=== PATIENT | male | born 1930 | race Caucasian/White ===

== ENCOUNTER 2017-02-11 18:29 | Emergency (ER) | payer MEDICARE, OTHER ==
[2017-02-11 18:38] VITALS: BP 149/72; PULSE 84; RESP 18; TEMP 97.5
--- NOTE | 2017-02-11 19:01 | ED ---
Trauma HPI - General Chief Complaint: Extremity Injury, Upper Stated Complaint: Fall-shoulder pain Source: patient Mode of arrival: ambulatory Limitations: no limitations - History of Present Illness Initial Comments: Patient is a 87-year-old male who presents for evaluation after a slip and fall outside of his home. Past medical history as below. Patient was walking towards his garage and slipped on the snow falling to the right front of his right shoulder. Patient states that he has significant pain to his right shoulder. Limited range of motion. He is able to get up with assistance and ambulate without difficulty. He states he did not hit his head. There is no loss of consciousness. No signs of head trauma. Mentation is at baseline per the at bedside. He is right-handed. He took 2 Aleve after the injury and came here for further evaluation. Denies fever, chills, headache, changes of vision, URI symptoms, shortness of breath, cough, chest pain, nausea, vomiting, diarrhea, pain or burning with urination. - Related Data Home Medications Medication Instructions Recorded Confirmed Aspirin 81 mg PO DAILY 05/24/16 02/11/17 Esomeprazole Magnesium 40 mg PO DAILY 05/24/16 02/11/17 Guaifenesin/Pseudoephedrne HCl 1 tab PO Q48H 05/24/16 02/11/17 [Mucinex D ER Tablet] Levothyroxine Sodium [Synthroid] 125 mcg PO DAILY 05/24/16 02/11/17 Tamsulosin [Flomax] 0.4 mg PO HS 05/24/16 02/11/17 Tiotropium [place] [Spiriva] 1 cap INHALATION RT-DAILY 05/24/16 02/11/17 Biotin 5 mg PO DAILY 09/09/16 02/11/17 Cyanocobalamin [Vitamin B-12] 1,000 mcg PO DAILY 09/09/16 02/11/17 Previous Rx's Medication Instructions Recorded Docusate [Colace] 100 mg PO DAILY PRN #15 capsule 02/11/17 HYDROcodone/APAP 5-325MG [[place] 1 tab PO Q6HR PRN #15 tab 02/11/17 5-325] Allergies Allergy/AdvReac Type Severity Reaction Status Date / Time No Known Allergies Allergy Verified 02/11/17 19:13 Review of Systems ROS Statement: Those systems with pertinent positive or pertinent negative responses have been documented in the HPI. ROS Other: All systems not noted in ROS Statement are negative. Past Medical History Past Medical History: COPD Additional Past Medical History / Comment(s): Bladder tumor and polyps. History of Any Multi-Drug Resistant Organisms: None Reported Past Surgical History: Appendectomy, Joint Replacement Additional Past Surgical History / Comment(s): left knee replaced; Polyps and tumor removed from bladder 09/02/16 Past Anesthesia/Blood Transfusion Reactions: No Reported Reaction Past Psychological History: No Psychological Hx Reported Smoking Status: Former smoker Past Alcohol Use History: None Reported Past Drug Use History: None Reported - Past Family History Father History Unknown: Yes Family Medical History: Cancer Mother History Unknown: Yes Family Medical History: Coronary Artery Disease (CAD) General Exam Limitations: no limitations General appearance: alert, in no apparent distress, other (Sitting upright in chair in no acute distress) Head exam: Present: atraumatic, normocephalic, normal inspection, other (No signs of head trauma.) Eye exam: Present: normal appearance, PERRL, EOMI. Absent: scleral icterus, conjunctival injection, periorbital swelling ENT exam: Present: normal exam, mucous membranes moist Neck exam: Present: normal inspection, other (No pain with palpation of his midline cervical spine. Full range of motion of his neck.). Absent: tenderness , meningismus, lymphadenopathy Respiratory exam: Present: normal lung sounds bilaterally, other (Clear bilaterally without wheezes rales or rhonchi. No diminished breath sounds on the right. No hypoxia. No tachypnea.). Absent: respiratory distress, wheezes , rales, rhonchi, stridor Cardiovascular Exam: Present: regular rate, normal rhythm, normal heart sounds. Absent: systolic murmur, diastolic murmur, rubs, gallop, clicks GI/Abdominal exam: Present: soft, normal bowel sounds, other (Abdomen is soft and nontender.). Absent: distended, tenderness, guarding, rebound, rigid Extremities exam: Present: normal inspection, normal capillary refill, other ( Pain with palpation of the anterior shoulder. There is also pain with palpation of the proximal humerus. Limited range of motion in flexion extension and abduction of the right shoulder. Sensation intact in the right hands. Neurovascularly intact in the right hand. Good cap refill.). Absent: tenderness, pedal edema, joint swelling, calf tenderness Back exam: Present: normal inspection Neurological exam: Present: alert, oriented X3, CN II-XII intact, normal gait, other (Cranial nerves II through XII grossly intact without focal neurological deficits. Mentation appropriate. Alert and oriented 3. Gait intact.) Psychiatric exam: Present: normal affect, normal mood Skin exam: Present: warm, dry, intact, normal color. Absent: rash Course Vital Signs 02/11/17 18:34 Temperature 97.5 F L Pulse Rate 84 Respiratory 18 Rate Blood Pressure 149/72 O2 Sat by Pulse 97 Oximetry Medical Decision Making - Medical Decision Making 1899: Patient presents for evaluation for fall. A mandatory after the fall. No loss of consciousness. No signs of head trauma. Due to his pain to the right shoulder. Limited range of motion. Suspect proximal humerus fracture versus shoulder dislocation. Neurovascularly intact. We'll order plain films of the chest, right shoulder, right elbow. Will also order 2.5 mg IM morphine 2030: Reviewed plain films. No acute fracture dislocation. There are 2 areas of concern that the radiologist could not rule out as a fracture. Radiologist mentions an irregularity with the radial head and irregularity with the scapula. No pain with palpation of the radial head. Full supination and pronation of the right forearm. Full extension and flexion of the right elbow. No pain with palpation of the right scapula. Patient's pain is located to the right anterior shoulder and in the anterior aspect of his right humerus. No identified acute fracture or dislocation. Will place in an arm sling for comfort. [place] for home. Will also provide a stool softener. Patient's orthopedic surgeon is Dr. Loredo. I discussed the case with him over the phone and is OK with the plan. Encouraged to call his office tomorrow morning for follow-up in 1-2 days. Discussed signs and symptoms on when to return to emergency department for further evaluation. Comfortable with discharge home and will follow-up. Disposition Clinical Impression: Fall, Right anterior shoulder pain Disposition: HOME SELF-CARE Condition: Fair Instructions: Shoulder Sprain (ED) Prescriptions: Docusate [Colace] 100 mg PO DAILY PRN #15 capsule PRN Reason: Constipation HYDROcodone/APAP 5-325MG [[place] 5-325] 1 tab PO Q6HR PRN #15 tab PRN Reason: Pain Referrals: Nonstaff,Physician [Primary Care Provider] - 1-2 days Fredrick Loredo DO [Doctor of Osteopathic Medicine] - 1-2 days
[2017-02-11] MEDS ORDERED: MORPHINE SULFATE 10 MG/ML SYRINGE IM STA (19:23)
--- NOTE | 2017-02-11 20:14 | XR ---
EXAMINATION TYPE: XR shoulder complete RT DATE OF EXAM: 02/11/2017 7:57 PM CLINICAL HISTORY: pain COMPARISON: NONE TECHNIQUE: Frontal and lateral images of the right humerus are obtained. FINDINGS: There is no acute fracture/dislocation evident of the shoulder.. The joint spaces appear w ithin normal limits. Cortical irregularity involving the scapular body may reflect remote fracture ho wever clinical correlation point tenderness is recommended to exclude acute fracture. The overlying s oft tissue appears unremarkable. IMPRESSION: Cortical irregularity involving the scapular body may reflect remote fracture however cl inical correlation point tenderness is recommended to exclude acute fracture.
--- NOTE | 2017-02-11 20:15 | XR ---
EXAMINATION TYPE: XR chest 1V DATE OF EXAM: 02/11/2017 7:57 PM HISTORY: Shortness of breath. COMPARISON: 05/24/2016 TECHNIQUE: Single view of the chest is submitted. FINDINGS: Demonstrated are scattered senescent parenchymal change. There is no evidence for focal infiltrate. The heart is stable. Hilar and mediastinal structures are within normal limits. Degenerative changes are seen of the dorsal spine. IMPRESSION: 1. Chronic changes without evidence for acute pulmonary disease.
--- NOTE | 2017-02-11 20:17 | XR ---
EXAMINATION TYPE: XR elbow complete RT DATE OF EXAM: 02/11/2017 7:57 PM CLINICAL HISTORY: pain TECHNIQUE: Frontal, lateral and oblique images of the right elbow are obtained. COMPARISON: None. FINDINGS: Limited study given difficulty in patient positioning. Cortical irregularity radial head is suspicious for fracture. No pathologic fat pad however the lateral view is quite limiting. IMPRESSION: Radial head fracture is not excluded.
== END 2017-02-11 21:02 | disposition home or self-care (01) ==
LOC: EC 18:29
DX: S43.401A Unspecified sprain of right shoulder joint, initial encounter (principal); M89.8X3 Other specified disorders of bone, forearm; J44.9 Chronic obstructive pulmonary disease, unspecified; Z87.891 Personal history of nicotine dependence; Z79.82 Long term (current) use of aspirin; Z79.899 Other long term (current) drug therapy; W00.0XXA Fall on same level due to ice and snow, initial encounter; Y93.01 Activity, walking, marching and hiking; Y92.59 Other trade areas as the place of occurrence of the external cause
CPT/HCPCS: 99283 ×2; 96372 ×2; 71010; 73030; 73080; J2270

== ENCOUNTER 2017-03-07 05:46 | Day surgery (SDC) | payer MEDICARE ==
[2017-03-05 09:47] VITALS: BMI 29.0
[~2017-03-07 05:46] MED LIST: DEXAMETHASONE SOD PHOSPHATE 10 MG/ML 1 ML VIAL IV ONE; HYDROmorphone 1 MG/ML 1 ML SYRINGE IVP PRN; LIDOCAINE 1% 20 ML VIAL (10MG/ML) FOR IV START INTRADERMA PRN; MIDAZOLAM 2 MG/2 ML VIAL IV PRN; ONDANSETRON 4 MG/2 ML VIAL IVP ONE; SCOPOLAMINE 1.5MG/72HR PATCH TRANSDERM ONE; ceFAZolin 2 GM in SODIUM CHLORIDE 0.9% 100 ML IVPB ONE
[2017-03-07] MEDS: LACTATED RINGERS 1,000 ML IV SCH ×3 (06:24→21:26)
[2017-03-07] MEDS ORDERED: LIDOCAINE 1% INJ 10MG/ML (20 ML MDV) ONE (07:36)
[2017-03-07] MEDS ORDERED: GLYCOPYRROLATE 0.2 MG/ML 2 ML VIAL ONE (07:36)
[2017-03-07] MEDS ORDERED: ROCURONIUM BROMIDE 10 MG/ML 10 ML VIAL IV ONE (07:36)
[2017-03-07] MEDS ORDERED: SUCCINYLCHOLINE CHLORIDE 100 MG/5 ML SYR IV ONE (07:36)
[2017-03-07] MEDS ORDERED: PROPOFOL 10 MG/ML 20 ML VIAL IV ONE (07:36)
[2017-03-07] MEDS ORDERED: NEOSTIGMINE 1 MG/ML 10 ML VIAL ONE (07:36)
[2017-03-07] MEDS ORDERED: PHENYLEPHRINE-0.9% NACL SYG 1 MG/10 ML SYRINGE ONE (07:36)
[2017-03-07] MEDS ORDERED: ceFAZolin 1,000 MG in SODIUM CHLORIDE 0.9% 1,000 ML IRRIGATION ONE (08:05)
[2017-03-07] MEDS ORDERED: LACTATED RINGERS 1,000 ML IV ONE (08:40)
[2017-03-07] MEDS ORDERED: HYDROcodone/APAP 5-325MG 1 EACH TAB PO PRN (09:18)
[2017-03-07] MEDS ORDERED: ONDANSETRON 4 MG/2 ML VIAL IVP PRN (09:18)
[2017-03-07] MEDS ORDERED: hydrOXYzine PAMOATE 25 MG CAP PO PRN (09:18)
[2017-03-07] MEDS ORDERED: HYDROmorphone 1 MG/ML 1 ML SYRINGE IVP PRN ×3 (09:18)
[2017-03-07] MEDS: ceFAZolin 2 GM in SODIUM CHLORIDE 0.9% 100 ML IVPB SCH (15:02)
[2017-03-07] MEDS ORDERED: ALBUTEROL NEBULIZED 2.5 MG/3 ML INHALATION PRN (16:29)
[2017-03-07] MEDS ORDERED: DOCUSATE 100 MG CAP PO PRN (16:29)
--- NOTE | 2017-03-07 19:03 | CONS ---
DATE OF CONSULTATION: 03/07/2017 REASON FOR CONSULTATION: Advice regarding COPD and GERD and multiple other medical problems, requested by Dr. Loredo. HISTORY OF PRESENT ILLNESS: This 87-year-old gentleman with a past medical history of COPD, GERD, history of hearing disorder, history of appendectomy, hernia repair, history of nicotine dependence, being followed by Albertina Evans in the outpatient setting, was admitted after right shoulder arthroplasty. There is no history of any fever, rigor, or chills. No history of any headache, loss of consciousness, chest pain, palpitations, shortness of breath, hematochezia, melena. PAST MEDICAL HISTORY: 1. COPD. 2. GERD. 3. Hearing difficulties. 4. Hypothyroidism. 5. Bladder tumor. 6. Appendectomy. 7. Hernia repair. Medications prior to admission include: 1. Spiriva 1 puff daily. 2. Flomax 0.4 at bedtime. 3. Omeprazole 20 mg daily. 4. Synthroid 112 mcg p.o. daily. 5. Colace 100 mg p.o. daily p.r.n. 6. Vitamin B12 1000 mg p.o. daily. 7. Biotin 5 mg p.o. daily. 8. Aspirin 81 mg daily. 9. ProAir 1 to 2 puffs q.6 p.r.n. 10. Senokot-S two tablets p.o. daily. 11. [place] 5 mg 1 to 2 tablets q.4 to 6 p.r.n. ALLERGIES: NONE. FAMILY HISTORY: History of bone cancer in the family. SOCIAL HISTORY: Previous history of smoking. Occasional alcohol intake. REVIEW OF SYSTEMS: ENT: No diminishing hearing. No diminished hearing. CARDIOVASCULAR SYSTEM: No angina, palpitations. RESPIRATORY SYSTEM: As mentioned earlier. GI: No history of nausea, vomiting. : No dysuria. NERVOUS SYSTEM: No numbness or weakness. ALLERGY/IMMUNOLOGY: No asthma or hayfever. MUSCULOSKELETAL: As mentioned earlier. HEMATOLOGY/ONCOLOGY: No history of anemia. ENDOCRINE: As mentioned earlier. ( ) CONSTITUTIONAL: As mentioned earlier. DERMATOLOGY: Negative. RHEUMATOLOGY: Negative. PSYCHIATRY: As mentioned earlier. PHYSICAL EXAMINATION: Patient is alert and oriented x3. Pulse 83, blood pressure 137/76, respiration 20, temperature normal, pulse ox 96% on room air. HEENT: Conjunctivae normal. NECK: No jugular venous distention. CARDIOVASCULAR SYSTEM: S1, S2 muffled. RESPIRATORY SYSTEM: Breath sounds diminished at the bases. Scattered rhonchi and crackles. ABDOMEN: Soft. Non-tender. No mass palpable. LEGS: No edema. No swelling. NERVOUS SYSTEM: Higher functions as mentioned earlier. Moves all 4 limbs. No focal motor or sensory deficit. LYMPHATICS: No lymph node palpable in neck, axillae or groin. SKIN: No ulcer, rash, bleeding. EXAMINATION OF SHOULDER: Status post surgery. PREVIOUS LABS: CBC within normal limits. CMP showed sodium is 133. Triglyceride 288. TSH 0.178. Free T4 is 1.53. ASSESSMENT: 1. Status post right shoulder arthroplasty. 2. Hyponatremia previously. 3. Hypothyroidism. 4. History of chronic obstructive pulmonary disease. 5. Gastroesophageal reflux. 6. History of bladder tumor and polyps. 7. History of hernia ( ). 8. History of degenerative joint disease. 9. Remote history of nicotine dependence. 10. FULL CODE. RECOMMENDATIONS AND DISCUSSION: In this 87-year-old gentleman who presented with multiple complex medical issues, at this time I recommend to continue with the current medications, continue with the monitoring. I recommend resuming the home medications. DVT prophylaxis. Incentive spirometry. Will follow the patient closely with you. Patient may be asked to follow up with Dr. Nathan orozco after discharge. Thank you, Dr. Loredo, for letting us participate in the care of this patient.
[2017-03-07] MEDS ORDERED: TEMAZEPAM 15 MG CAP PO PRN (21:00)
[2017-03-07] MEDS ORDERED: SENNOSIDES-DOCUSATE SODIUM 1 EACH TAB PO PRN (21:00)
[2017-03-07] MEDS ORDERED: TAMSULOSIN 0.4 MG CAP.ER.24H PO SCH (21:00)
[2017-03-08] MEDS: ceFAZolin 2 GM in SODIUM CHLORIDE 0.9% 100 ML IVPB SCH (00:04)
[2017-03-08] MEDS: HYDROcodone/APAP 5-325MG 1 EACH TAB PO PRN ×3 (00:06→12:46)
[2017-03-08 01:04] VITALS: RESP 16
[2017-03-08] MEDS ORDERED: LEVOTHYROXINE 125 MCG TAB PO SCH (06:30)
[2017-03-08] MEDS ORDERED: LEVOTHYROXINE 112 MCG TAB PO SCH (06:30)
[2017-03-08] MEDS ORDERED: TIOTROPIUM 18 MCG/PUFF INHALER INHALATION SCH (08:00)
[2017-03-08] MEDS: LACTATED RINGERS 1,000 ML IV SCH ×2 (08:29→08:34)
[2017-03-08 08:45] VITALS: BP 110/58; PULSE 72; TEMP 97.7
[2017-03-08] MEDS ORDERED: PANTOPRAZOLE 40 MG TABLET PO SCH (09:00)
[2017-03-08] MEDS ORDERED: CYANOCOBALAMIN 500 MCG TAB PO SCH (09:00)
[2017-03-08] MEDS ORDERED: NON-FORMULARY DRUG (Biotin [Biotin] 5 MG) PO SCH (09:00)
--- NOTE | 2017-03-08 11:36 | P.DS ---
Providers Expected date of discharge: 03/08/17 Attending physician: Fredrick Loredo Consults: 03/07/17 09:18 Consult Physician Routine Consulting Provider: Michael Rodrigues Consult Reason/Comments: medical management Do you want consulting provider notified?: Yes Primary care physician: Albertina Evans MD Hospital Course: This is an 87-year-old gentleman with known rotator cuff tear and impingement. The patient underwent MRI scan as well. After discussion consideration the patient elected to proceed with surgical intervention. The patient was admitted to [facility] on 03/07/2017 and underwent right shoulder chondroplasty, excision distal end of clavicle and rotator cuff repair with Dr. Loredo. The procedure was performed without competitions or sequelae. The patient has done well postoperatively. He has no new complaints at this time. He states that his pain is under fair control. Dressing is clean dry and intact. Incision appears fine with no erythema or active drainage. He has good active range of motion at the wrist and fingers. He denies numbness or tingling. Right upper extremity is neurovascularly intact. The patient is or thickly stable for discharge after he has worked with physical therapy if he is doing well with ambulation. Patient Condition at Discharge: Good Plan - Discharge Summary New Discharge Prescriptions: HYDROcodone/APAP 5-325MG [[place] 5] 1 - 2 each PO Q4-6H PRN #60 tab PRN Reason: Pain Sennosides-Docusate Sodium [Senokot-S] 2 tab PO DAILY #30 tablet Discharge Medication List Aspirin 81 mg PO DAILY 05/24/16 [History] Levothyroxine Sodium [Synthroid] 112 mcg PO DAILY 05/24/16 [History] Tamsulosin [Flomax] 0.4 mg PO HS 05/24/16 [History] Tiotropium [place] [Spiriva] 1 cap INHALATION RT-DAILY 05/24/16 [History] Biotin 5 mg PO DAILY 09/09/16 [History] Cyanocobalamin [Vitamin B-12] 1,000 mcg PO DAILY 09/09/16 [History] Docusate [Colace] 100 mg PO DAILY PRN #15 capsule 02/11/17 [Rx] Albuterol Sulfate [Proair Hfa] 1 - 2 puff INHALATION Q6HR PRN 03/05/17 [History] Omeprazole 20 mg PO DAILY 03/05/17 [History] HYDROcodone/APAP 5-325MG [[place] 5] 1 - 2 each PO Q4-6H PRN #60 tab 03/07/17 [Rx] Sennosides-Docusate Sodium [Senokot-S] 2 tab PO DAILY #30 tablet 03/07/17 [Rx] Follow up Appointment(s)/Referral(s): Fredrick Loredo DO [Doctor of Osteopathic Medicine] - 2 Weeks Patient Instructions/Handouts: Peripheral Nerve Block (DC) Activity/Diet/Wound Care/Special Instructions: Keep incision clean and dry Change dressing daily May shower in 3 days if no drainage from incision Keep arm sling/abductor pillow in place except when bathing Follow up with Dr. Loredo in 2 weeks. Call [facility] with any questions or concerns. [phone] Discharge Disposition: HOME SELF-CARE
--- NOTE | 2017-03-08 20:30 | PN ---
DATE OF SERVICE: 03/08/2017 This 87-year-old gentleman who was admitted after right shoulder arthroplasty improved significantly. No chest pain or palpitations. No fever. On exam, alert and oriented x3. Pulse 72, blood pressure 110/54, respirations 16, temperature 97.7, pulse ox 94% on room air. HEENT: Conjunctivae normal. NECK: No jugular venous distension. CARDIOVASCULAR: S1 and S2 muffled. RESPIRATORY: Breath sounds diminished in the bases. ABDOMEN: Soft, nontender. LEGS: No edema. RIGHT SHOULDER: Status post arthroplasty. NERVOUS SYSTEM: No focal deficits. Labs are noted. ASSESSMENT: 1. Status post right shoulder arthroplasty. 2. Hyponatremia previously. 3. Hypothyroidism. 4. History of chronic obstructive pulmonary disease. 5. Gastroesophageal reflux disease. 6. History of bladder tumor and polyps. 7. History of hernia. 8. History of degenerative joint disease. 9. Remote history of nicotine dependence. 10. FULL CODE. RECOMMENDATIONS AND DISCUSSION: Recommend to continue current medications. Continue with monitoring and symptomatic treatment. Otherwise, at this time I recommend continuing with current medications. Follow up closely with Dr. Evans in the outpatient setting. Resume home medications. Further recommendations to follow.
--- NOTE | 2017-03-11 08:22 | OP ---
DATE OF SERVICE: 03/07/2017 SURGEON: TIFFANY KU DO WARRANTY MANAGER: Antonietta Black NP PREOPERATIVE DIAGNOSIS: Torn right rotator cuff. 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 OPERATION: Resection distal right clavicle, decompression and acromioplasty and right rotator cuff repair with Arthrex bioabsorbable anchor. ANESTHESIA: ESTIMATED BLOOD LOSS: SPECIMENS REMOVED: COMPLICATIONS: OPERATIVE FINDINGS: DESCRIPTION OF PROCEDURE: Patient was taken to the operative suite, placed in a supine position. Medial block nerve procedure had been performed by Department of Anesthesiology in the preoperative area. Patient was placed in a beach chair position with padding and secured. A Betadine prep was carried out and sterile drapes applied in the usual manner. A minimal invasive into the lateral incision was developed over the acromion. Sharp dissection was carried out through the subcutaneous tissue. The anterior deltoid from the cruciate ligament was identified. The distal 1 cm of the clavicle was excised with the bone saw. The anterior deltoid was released along the anterolateral border. The coracoacromial ligament was divided. The anterolateral decompression acromioplasty was performed. The width of the acromion was shaped with a bone saw and bone rasp. The cuff was inspected and evidence of large prominent tear of the rotator cuff was noted. The area was irrigated. Inserting of Arthrex bioabsorbable anchor was inserted x2. The area was irrigated. The deltoid was reapproximated into the acromion with #1 Ethibond suture. The patch was approximated with #1 Vicryl suture. Subcutaneous tissue was reapproximated with 2-0 Vicryl suture in an interrupted fashion. Skin was reapproximated with 3-0 Quill suture in a subcuticular fashion. The incision was sealed with Dermabond. A sterile dressing was applied. Patient placed in abductor pillow splint and returned to the recovery room in satisfactory postop condition. GROSS PATHOLOGY: There was evidence of a complete rotator cuff tear with the shoulder involving the supraspinatus, infraspinatus and pushing the upper area of the teres minor. [facility]
== END 2017-03-08 16:01 | disposition home or self-care (01) ==
LOC: OR 05:46 → 3SUR 09:01 → OR 03-08 16:01
PROVIDERS: ATTEND Orthopaedic Surgery
DX: S43.421A Sprain of right rotator cuff capsule, initial encounter (principal); W19.XXXA Unspecified fall, initial encounter; J44.9 Chronic obstructive pulmonary disease, unspecified; E03.9 Hypothyroidism, unspecified; N40.0 Benign prostatic hyperplasia without lower urinary tract symptoms; K21.9 Gastro-esophageal reflux disease without esophagitis; Z87.891 Personal history of nicotine dependence; Z79.82 Long term (current) use of aspirin; Z79.899 Other long term (current) drug therapy
CPT/HCPCS: 94640; 97161; 64415; 23412; 23130; 23120; C1713; J2250; J1100; J2710; J0690 ×3; J2405; J2001; J1170; J2370; J0330; J2704

== ENCOUNTER 2017-03-28 20:03 | Inpatient (IN) | payer MEDICARE ==
[2017-03-28] MEDS ORDERED: ACETAMINOPHEN TAB 325 MG TAB PO STA (20:35)
--- NOTE | 2017-03-28 20:40 | ED ---
Fever HPI - General Chief Complaint: Fever Stated Complaint: Shoulder Pain Time Seen by Provider: 03/28/17 20:05 Source: patient, EMS Mode of arrival: EMS Limitations: physical limitation - History of Present Illness Initial Comments: This patient is an 87-year-old man who presents to be evaluated for generalized weakness, fatigue, and fever. Patient states that he noticed he was feeling hot over about the past 2-3 days. He went into the clinic see Dr. Loredo, as she had a rotator cuff surgery in early March. He reports that they did put a needle into his right shoulder and did tell him that there was no sign of infection there. He did receive prescription for and started taking Bactrim after the office visit. The patient states that over the course of this afternoon and evening he was getting so weak that he could not get out of the chair tonight. The patient is denying other symptoms of infection, including no headache, neck stiffness, sore throat, cough, chest pain or shortness of breath. The patient is not having any vomiting or diarrhea. He has not had any urinary frequency or dysuria. MD Complaint: fever, weakness Onset/Timin -: days(s) Temperature Source: subjective Context: recent procedure Treatments Prior to Arrival: none - Related Data Home Medications Medication Instructions Recorded Confirmed Aspirin 81 mg PO DAILY 05/24/16 03/28/17 Levothyroxine Sodium [Synthroid] 125 mcg PO DAILY 05/24/16 03/28/17 Tamsulosin [Flomax] 0.4 mg PO BID 05/24/16 03/28/17 Tiotropium [place] [Spiriva] 1 cap INHALATION RT-DAILY 05/24/16 03/28/17 Biotin 5 mg PO DAILY 09/09/16 03/28/17 Cyanocobalamin [Vitamin B-12] 1,000 mcg PO DAILY 09/09/16 03/28/17 Albuterol Sulfate [Proair Hfa] 1 - 2 puff INHALATION RT-Q6H PRN 03/05/17 Cholecalciferol [Vitamin D3] 1,000 unit PO DAILY 03/28/17 03/28/17 Esomeprazole Magnesium [NexIUM] 40 mg PO DAILY 03/28/17 03/28/17 Sulfamethox-Tmp 800-160Mg [Bactrim 1 tab PO Q12HR 03/28/17 03/28/17 DS 800-160 mg] guaiFENesin-DM 600/30MG [Mucinex 1 tab PO Q48H 03/28/17 03/28/17 Dm] Allergies Allergy/AdvReac Type Severity Reaction Status Date / Time No Known Allergies Allergy Verified 03/28/17 20:55 Review of Systems ROS Statement: Those systems with pertinent positive or pertinent negative responses have been documented in the HPI. ROS Other: All systems not noted in ROS Statement are negative. Constitutional: Reports: fever, chills, weakness (Generalized) ENT: Denies: throat pain, congestion Respiratory: Denies: cough, dyspnea Cardiovascular: Denies: palpitations Endocrine: Reports: fatigue Gastrointestinal: Denies: abdominal pain, nausea, vomiting, diarrhea Genitourinary: Denies: dysuria, hematuria Musculoskeletal: Reports: arthralgia (Right shoulder pain). Denies: back pain Skin: Denies: rash Neurological: Reports: weakness (Generalized). Denies: headache, numbness Past Medical History Past Medical History: Cancer, COPD, GERD/Reflux, Hearing Disorder / Deafness, Thyroid Disorder Additional Past Medical History / Comment(s): Bladder tumor and polyps. [place], SKIN CANCER History of Any Multi-Drug Resistant Organisms: None Reported Past Surgical History: Appendectomy, Hernia Repair, Joint Replacement, Orthopedic Surgery Additional Past Surgical History / Comment(s): left knee replaced; Polyps and tumor removed from bladder ,CATARACT EXTRACTION-BILATERAL, R. Rotator Cuff Past Anesthesia/Blood Transfusion Reactions: No Reported Reaction Past Psychological History: No Psychological Hx Reported Smoking Status: Former smoker Past Alcohol Use History: Occasional Additional Past Alcohol Use History / Comment(s): STARTED SMOKING AT AGE 21 QUIT 1981 SMOKED 2PPD Past Drug Use History: None Reported - Past Family History Father History Unknown: Yes Family Medical History: Cancer Mother History Unknown: Yes Family Medical History: Coronary Artery Disease (CAD) Brother(s) Family Medical History: Cancer Additional Family Medical History / Comment(s): BONE CANCER General Exam Limitations: physical limitation General appearance: alert, in no apparent distress Head exam: Present: atraumatic, normocephalic Eye exam: Present: normal appearance. Absent: scleral icterus, conjunctival injection ENT exam: Present: normal oropharynx Neck exam: Present: normal inspection, full ROM Respiratory exam: Present: normal lung sounds bilaterally. Absent: respiratory distress, wheezes, rales, rhonchi, stridor Cardiovascular Exam: Present: regular rate, normal rhythm, normal heart sounds. Absent: systolic murmur, diastolic murmur, rubs, gallop GI/Abdominal exam: Present: soft. Absent: distended, tenderness, guarding, rebound, mass Extremities exam: Present: normal inspection, normal capillary refill. Absent: pedal edema, calf tenderness Back exam: Present: normal inspection. Absent: CVA tenderness (R), CVA tenderness (L) Neurological exam: Present: alert Skin exam: Present: warm, dry, intact, normal color. Absent: rash Course Vital Signs 03/28/17 03/28/17 03/28/17 20:08 20:35 21:16 Temperature 103.6 F H Pulse Rate 104 H 99 93 Respiratory 20 20 20 Rate Blood Pressure 142/65 130/62 O2 Sat by Pulse 95 96 98 Oximetry 03/28/17 03/28/17 03/29/17 21:22 22:00 00:13 Temperature 103.1 F H 101.8 F H 99.3 F Pulse Rate 95 76 81 Respiratory 20 20 16 Rate Blood Pressure 119/60 111/56 110/63 O2 Sat by Pulse 97 96 95 Oximetry Medical Decision Making - Lab Data Result diagrams: 03/28/17 20:16 03/28/17 20:16 Lab Results 03/28/17 03/28/17 03/28/17 Range/Units 20:16 20:16 20:16 WBC 7.4 (3.8-10.6) k/uL RBC 4.38 (4.30-5.90) m/uL Hgb 13.3 (13.0-17.5) gm/dL Hct 39.8 (39.0-53.0) % MCV 91.0 (80.0-100.0) fL MCH 30.4 (25.0-35.0) pg MCHC 33.4 (31.0-37.0) g/dL RDW 13.6 (11.5-15.5) % Plt Count 279 (150-450) k/uL Neutrophils % 90 % Lymphocytes % 4 % Monocytes % 4 % Eosinophils % 1 % Basophils % 1 % Neutrophils # 6.7 (1.3-7.7) k/uL Lymphocytes # 0.3 L (1.0-4.8) k/uL Monocytes # 0.3 (0-1.0) k/uL Eosinophils # 0.1 (0-0.7) k/uL Basophils # 0.0 (0-0.2) k/uL PT (9.0-12.0) sec INR (<1.1) APTT (22.0-30.0) sec Sodium 132 L (137-145) mmol/L Potassium 4.5 (3.5-5.1) mmol/L Chloride 98 (98-107) mmol/L Carbon Dioxide 21 L (22-30) mmol/L Anion Gap 13 mmol/L BUN 12 (9-20) mg/dL Creatinine 1.10 (0.66-1.25) mg/dL Est GFR (MDRD) Af Amer >60 (>60 ml/min/1.73 sqM) Est GFR (MDRD) Non-Af >60 (>60 ml/min/1.73 sqM) Glucose 122 H (74-99) mg/dL Plasma Lactic Acid Raul 3.3 H* (0.7-2.0) mmol/L Calcium 8.8 (8.4-10.2) mg/dL Total Bilirubin 0.8 (0.2-1.3) mg/dL AST 27 (17-59) U/L ALT 32 (21-72) U/L Alkaline Phosphatase 57 (38-126) U/L Troponin I (0.000-0.034) ng/mL Total Protein 6.7 (6.3-8.2) g/dL Albumin 3.8 (3.5-5.0) g/dL Urine Color Urine Appearance (Clear) Urine pH (5.0-8.0) Ur Specific [place] (1.001-1.035) Urine Protein (Negative) Urine Glucose (UA) (Negative) Urine Ketones (Negative) Urine Blood (Negative) Urine Nitrite (Negative) Urine Bilirubin (Negative) Urine Urobilinogen (<2.0) mg/dL Ur Leukocyte Esterase (Negative) 03/28/17 03/28/17 03/28/17 Range/Units 20:16 20:16 20:16 WBC (3.8-10.6) k/uL RBC (4.30-5.90) m/uL Hgb (13.0-17.5) gm/dL Hct (39.0-53.0) % MCV (80.0-100.0) fL MCH (25.0-35.0) pg MCHC (31.0-37.0) g/dL RDW (11.5-15.5) % Plt Count (150-450) k/uL Neutrophils % % Lymphocytes % % Monocytes % % Eosinophils % % Basophils % % Neutrophils # (1.3-7.7) k/uL Lymphocytes # (1.0-4.8) k/uL Monocytes # (0-1.0) k/uL Eosinophils # (0-0.7) k/uL Basophils # (0-0.2) k/uL PT 12.3 H (9.0-12.0) sec INR 1.2 (<1.1) APTT 26.6 (22.0-30.0) sec Sodium (137-145) mmol/L Potassium (3.5-5.1) mmol/L Chloride (98-107) mmol/L Carbon Dioxide (22-30) mmol/L Anion Gap mmol/L BUN (9-20) mg/dL Creatinine (0.66-1.25) mg/dL Est GFR (MDRD) Af Amer (>60 ml/min/1.73 sqM) Est GFR (MDRD) Non-Af (>60 ml/min/1.73 sqM) Glucose (74-99) mg/dL Plasma Lactic Acid Raul (0.7-2.0) mmol/L Calcium (8.4-10.2) mg/dL Total Bilirubin (0.2-1.3) mg/dL AST (17-59) U/L ALT (21-72) U/L Alkaline Phosphatase (38-126) U/L Troponin I <0.012 (0.000-0.034) ng/mL Total Protein (6.3-8.2) g/dL Albumin (3.5-5.0) g/dL Urine Color Yellow Urine Appearance Clear (Clear) Urine pH 6.5 (5.0-8.0) Ur Specific [place] 1.021 (1.001-1.035) Urine Protein Trace H (Negative) Urine Glucose (UA) Negative (Negative) Urine Ketones Negative (Negative) Urine Blood Negative (Negative) Urine Nitrite Negative (Negative) Urine Bilirubin Negative (Negative) Urine Urobilinogen 2.0 (<2.0) mg/dL Ur Leukocyte Esterase Negative (Negative) 03/29/17 Range/Units 00:15 WBC (3.8-10.6) k/uL RBC (4.30-5.90) m/uL Hgb (13.0-17.5) gm/dL Hct (39.0-53.0) % MCV (80.0-100.0) fL MCH (25.0-35.0) pg MCHC (31.0-37.0) g/dL RDW (11.5-15.5) % Plt Count (150-450) k/uL Neutrophils % % Lymphocytes % % Monocytes % % Eosinophils % % Basophils % % Neutrophils # (1.3-7.7) k/uL Lymphocytes # (1.0-4.8) k/uL Monocytes # (0-1.0) k/uL Eosinophils # (0-0.7) k/uL Basophils # (0-0.2) k/uL PT (9.0-12.0) sec INR (<1.1) APTT (22.0-30.0) sec Sodium (137-145) mmol/L Potassium (3.5-5.1) mmol/L Chloride (98-107) mmol/L Carbon Dioxide (22-30) mmol/L Anion Gap mmol/L BUN (9-20) mg/dL Creatinine (0.66-1.25) mg/dL Est GFR (MDRD) Af Amer (>60 ml/min/1.73 sqM) Est GFR (MDRD) Non-Af (>60 ml/min/1.73 sqM) Glucose (74-99) mg/dL Plasma Lactic Acid Raul 1.8 (0.7-2.0) mmol/L Calcium (8.4-10.2) mg/dL Total Bilirubin (0.2-1.3) mg/dL AST (17-59) U/L ALT (21-72) U/L Alkaline Phosphatase (38-126) U/L Troponin I (0.000-0.034) ng/mL Total Protein (6.3-8.2) g/dL Albumin (3.5-5.0) g/dL Urine Color Urine Appearance (Clear) Urine pH (5.0-8.0) Ur Specific [place] (1.001-1.035) Urine Protein (Negative) Urine Glucose (UA) (Negative) Urine Ketones (Negative) Urine Blood (Negative) Urine Nitrite (Negative) Urine Bilirubin (Negative) Urine Urobilinogen (<2.0) mg/dL Ur Leukocyte Esterase (Negative) - EKG Data -: EKG Interpreted by [place] EKG shows normal: sinus rhythm, axis (Normal), intervals (The QRS duration is lengthened at 132 ms), QRS complexes (Right bundle-branch block), ST-T waves ( Normal) Rate: normal (Rate 98 bpm) Disposition Clinical Impression: Lactic acidosis, Cellulitis Disposition: ADMITTED IP TO THIS [facility] Condition: Serious
[2017-03-28 20:51] LABS: INR 1.2 (<1.1); Partial Thromboplastin Time 26.6 sec (22.0-30.0); Prothrombin Time 12.3 sec (9.0-12.0)
[2017-03-28 20:56] LABS: ALT 32 U/L (21-72); AST 27 U/L (17-59); Alkaline Phosphatase 57 U/L (38-126); Anion Gap 13 mmol/L; Blood Urea Nitrogen 12 mg/dL (9-20); Calcium 8.8 mg/dL (8.4-10.2); Carbon Dioxide 21 mmol/L (22-30); Chloride 98 mmol/L (98-107); Glucose 122 mg/dL (74-99); Non-African American GFR(MDRD) >60 (>60 ml/min/1.73 sqM); Potassium 4.5 mmol/L (3.5-5.1); Sodium 132 mmol/L (137-145); Total Bilirubin 0.8 mg/dL (0.2-1.3); Total Protein 6.7 g/dL (6.3-8.2)
[2017-03-28 20:57] LABS: Appearance,Urine Clear (Clear); Bilirubin,Urine Negative (Negative); Glucose,Urine (UA) Negative (Negative); Ketones,Urine Negative (Negative); Leukocyte Esterase,Urine Negative (Negative); Nitrite,Urine Negative (Negative); PH, Urine 6.5 (5.0-8.0); Protein,Urine Trace (Negative); Specific Gravity,Urine 1.021 (1.001-1.035); UA Billing (MACRO vs. MICRO) CHEM
--- NOTE | 2017-03-28 20:57 | XR ---
EXAMINATION TYPE: XR chest 2V DATE OF EXAM: 03/28/2017 8:50 PM COMPARISON: 02/11/2017. HISTORY: Fever and inability of previous the patient's right arm. TECHNIQUE: Frontal and lateral views of the chest are obtained. FINDINGS: There is no focal air space opacity, pleural effusion, or pneumothorax seen. The cardiac silhouette size is within normal limits. The osseous structures are intact. IMPRESSION: No acute cardiopulmonary process.
[2017-03-28] MEDS: SODIUM CHLORIDE 0.9% 500 ML IV SCH ×2 (20:58→21:34)
[2017-03-28 21:03] LABS: Basophils % (A) 1 %; CH 30.7; CHCM 33.9; Eosinophils # (A) 0.1 k/uL (0-0.7); Eosinophils % (A) 1 %; HCT 39.8 % (39.0-53.0); HDW 2.35; HGB 13.3 gm/dL (13.0-17.5); Luc # (Auto) 0.07; Luc % (Auto) 1; Lymphocytes # (A) 0.3 k/uL (1.0-4.8); Lymphocytes % (A) 4 %; MCH 30.4 pg (25.0-35.0); MCHC 33.4 g/dL (31.0-37.0); Mean Platelet Volume 7.4; Monocytes # (A) 0.3 k/uL (0-1.0); Monocytes % (A) 4 %; Neutrophils # (A) 6.7 k/uL (1.3-7.7); Neutrophils % (A) 90 %; RBC 4.38 m/uL (4.30-5.90); RDW 13.6 % (11.5-15.5); WBC 7.4 k/uL (3.8-10.6); WBC (Perox) 7.48
[2017-03-28] MEDS ORDERED: SODIUM CHLORIDE 0.9% 1,000 ML IV ONE (21:08)
[2017-03-28] MEDS ORDERED: HYDROcodone/APAP 5-325MG 1 EACH TAB PO STA (21:30)
[2017-03-28] MEDS ORDERED: IV VANCOMYCIN PER PHARMACY 1 EACH MISC MISCELLANE PRN (22:38)
[2017-03-28] MEDS ORDERED: SODIUM CHLORIDE 0.9% 500 ML IV STA ×2 (22:40→22:41)
[2017-03-28] MEDS ORDERED: VANCOMYCIN 1,500 MG in SODIUM CHLORIDE 0.9% 250 ML IVPB SCH (23:00)
[2017-03-29] MEDS ORDERED: MORPHINE SULFATE 4 MG/ML SYRINGE IV PRN (00:58)
[2017-03-29] MEDS ORDERED: NALOXONE 0.4 MG/ML 1 ML VIAL IV PRN (00:58)
[2017-03-29] MEDS ORDERED: ONDANSETRON 4 MG/2 ML VIAL IVP PRN (00:58)
[2017-03-29] MEDS ORDERED: ACETAMINOPHEN TAB 325 MG TAB PO PRN (00:58)
[2017-03-29 02:24] VITALS: BMI 27.9
[2017-03-29] MEDS: ALBUTEROL NEBULIZED 2.5 MG/3 ML INHALATION PRN ×2 (04:11→15:47)
[2017-03-29] MEDS: HYDROcodone/APAP 5-325MG 1 EACH TAB PO PRN ×2 (04:21→09:03)
[2017-03-29] MEDS: SODIUM CHLORIDE 0.9% 1,000 ML IV SCH ×3 (05:38→18:23)
[2017-03-29] MEDS ORDERED: SULFAMETHOX-TMP 800-160MG 1 EACH TAB PO SCH (09:00)
[2017-03-29] MEDS: ASPIRIN 81 MG CHEW PO SCH (09:00)
[2017-03-29] MEDS ORDERED: NON-FORMULARY DRUG (Biotin [Biotin] 5 MG) PO SCH (09:00)
[2017-03-29] MEDS: LEVOTHYROXINE 125 MCG TAB PO SCH (09:00)
[2017-03-29] MEDS: CYANOCOBALAMIN 500 MCG TAB PO SCH (09:04)
[2017-03-29] MEDS: TAMSULOSIN 0.4 MG CAP.ER.24H PO SCH ×2 (09:04→21:28)
[2017-03-29] MEDS: CHOLECALCIFEROL 1,000 UNIT TAB PO SCH (09:04)
[2017-03-29] MEDS: PANTOPRAZOLE 40 MG TABLET PO SCH (09:04)
[2017-03-29] MEDS: guaiFENesin-DM 600/30MG 1 EACH TAB.ER.12H PO SCH (09:04)
--- NOTE | 2017-03-29 09:23 | P.CNOR ---
History of Present Illness - [facility] Consult date: 03/29/17 Consult reason: other (right shoulder cellulitis, fevers) History of present illness: patient is a pleasant 87-year-old gentleman who presented to the hospital against his fevers. He is seen and examined at bedside. He reports that he had undergone surgery at his right shoulder with rotator cuff surgery with Dr. CARDENAS on March 08 approximately 3 weeks ago. His recovery has been fairly uneventful until last week where he developed some redness and swelling around his right shoulder. He presented to our office and was able to see our physician's quality control assistant who did evaluation of him and attempted aspiration. There is no obvious evidence infection at the time of the aspiration and of his nose purulence and aspiration apparently on . He was started on prophylactic antibiotics with Bactrim but yesterday had worsening symptoms with fever and chills and presented to the emergency room where he was found have fevers up to 103 and was admitted. He feels lethargic. He denies chest pain. Review of Systems he has limited motion in his right shoulder due to his rotator cuff issues. He does not have significant pain in his shoulder to speak of. He says the redness has not been settling down at his right shoulder thus far. He denies numbness tingling in his upper extremity. He denies headaches or chest pain. Past Medical History Past Medical History: Cancer, COPD, GERD/Reflux, Hearing Disorder / Deafness, Musculoskeletal Disorder (rotator cuff tear status post surgery on March [address] CARDENAS), Thyroid Disorder Additional Past Medical History / Comment(s): polyps removed in bladder. [place], SKIN CANCER History of Any Multi-Drug Resistant Organisms: None Reported Past Surgical History: Appendectomy, Hernia Repair, Joint Replacement, Orthopedic Surgery Additional Past Surgical History / Comment(s): left knee replaced; Polyps and tumor removed from bladder ,CATARACT EXTRACTION-BILATERAL, R. Rotator Cuff Past Anesthesia/Blood Transfusion Reactions: No Reported Reaction Past Psychological History: No Psychological Hx Reported Smoking Status: Former smoker Past Alcohol Use History: Occasional Additional Past Alcohol Use History / Comment(s): STARTED SMOKING AT AGE 21 QUIT 1981 SMOKED 2PPD Past Drug Use History: None Reported - Past Family History Father History Unknown: Yes Family Medical History: Cancer Additional Family Medical History / Comment(s): prostate Mother History Unknown: Yes Family Medical History: Coronary Artery Disease (CAD) Brother(s) Family Medical History: Cancer Additional Family Medical History / Comment(s): prostate, BONE CANCER Medications and Allergies Home Medications Medication Instructions Recorded Confirmed Type Aspirin 81 mg PO DAILY 05/24/16 03/28/17 History Levothyroxine Sodium [Synthroid] 125 mcg PO DAILY 05/24/16 03/28/17 History Tamsulosin [Flomax] 0.4 mg PO BID 05/24/16 03/28/17 History Tiotropium [place] [Spiriva] 1 cap INHALATION RT-DAILY 05/24/16 03/28/17 History Biotin 5 mg PO DAILY 09/09/16 03/28/17 History Cyanocobalamin [Vitamin B-12] 1,000 mcg PO DAILY 09/09/16 03/28/17 History Albuterol Sulfate [Proair Hfa] 1 - 2 puff INHALATION RT-Q6H PRN 03/05/17 History Cholecalciferol [Vitamin D3] 1,000 unit PO DAILY 03/28/17 03/28/17 History Esomeprazole Magnesium [NexIUM] 40 mg PO DAILY 03/28/17 03/28/17 History Sulfamethox-Tmp 800-160Mg [Bactrim 1 tab PO Q12HR 03/28/17 03/28/17 History DS 800-160 mg] guaiFENesin-DM 600/30MG [Mucinex 1 tab PO Q48H 03/28/17 03/28/17 History Dm] Allergies Allergy/AdvReac Type Severity Reaction Status Date / Time No Known Allergies Allergy Verified 03/28/17 20:55 Physical Examination Osteopathic Statement: *. No significant issues noted on an osteopathic structural exam other than those noted in the History and Physical/Consult. - Shoulder right Appearance: previous incision (there is some small fluid collection around the incision site. There is no active drainage. There is some induration and swelling approximately 3 x 4 cm around the incision site. There does not appear to be gross effusion at the shoulder joint itself. He is able to move the shoulder slightly without significant pain. His motion is limited due to his rotator cuff issues. He does not have significant pain in his shoulder with passive range of motion. 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 CARDENAS The patient has been having fevers and has induration was cellulitis around his right shoulder. There is small fluid collection around the incision site, but is difficult to determine if this is too medicating with deep tissue. He is on vancomycin and Bactrim currently and I think that is appropriate. We will see if the antibiotics helped resolve some the infection brings his fevers down. If he is not responding we could consider irrigation and debridement at his right shoulder or aspiration again around the wound site. We will follow him closely.
--- NOTE | 2017-03-29 10:02 | XR ---
EXAMINATION TYPE: XR shoulder limited RT DATE OF EXAM: 03/29/2017 9:49 AM CLINICAL HISTORY: Right shoulder pain and swelling, cellulitis, surgery 3 weeks ago. TECHNIQUE: 2 views of the right shoulder are obtained. COMPARISON: Right shoulder x-ray February 11, 2017. FINDINGS: There is no acute fracture/dislocation evident in the right shoulder. There is improvement in acromial clavicular joint space. High riding humeral head is now present The visualized ribs are intact and unremarkable. No suspicious soft tissue lucency is seen. IMPRESSION: There is no acute fracture or dislocation in the right shoulder. High riding right humer al head is now present.
[2017-03-29] MEDS ORDERED: KETOROLAC 30 MG/ML 1 ML VIAL IVP PRN (10:09)
[2017-03-29] MEDS: TIOTROPIUM 18 MCG/PUFF INHALER INHALATION SCH (11:02)
--- NOTE | 2017-03-29 12:49 | HP ---
DATE OF ADMISSION: Patient is a pleasant 87-year-old gentleman who came in with complaints of generalized weakness, fatigue and high-grade fever of 103.1, and patient was found to have cellulitis and abscess of the left shoulder. Patient had surgery and patient was having severe pain in that area along with localized temperature. Patient has a small abscess in that area. Patient had rotator cuff surgery in early March. Patient apparently was told he had an infection in the shoulder area; I do not have any ( ) available. Unfortunately because of the weekend I probably will not be able to get any medical records from Dr. Loredo's clinic. Anyways, patient will be started on empiric antibiotics vancomycin. Patient was using Bactrim as an outpatient. Patient will need drainage. Will call Dr. Gonzalez. Will discuss with him regarding this. Patient will be started on IV fluids for sepsis secondary to abscess in the shoulder area. Patient denied any cough, runny nose, shortness of breath. Patient denied any nausea, vomiting, diarrhea. REVIEW OF SYSTEMS: CONSTITUTIONAL: No fever, no malaise, no fatigue. HEENT: No recent visual problems or hearing problems. Denied any sore throat. CARDIOVASCULAR: No chest pain, orthopnea, PND, no palpitations, no syncope. PULMONARY: No shortness of breath, no cough, no hemoptysis. GASTROINTESTINAL: No diarrhea, no nausea, no vomiting, no abdominal pain. Normoactive bowel sounds. NEUROLOGICAL: No headaches, no weakness, no numbness. HEMATOLOGICAL: Denies any bleeding or petechiae. GENITOURINARY: Denies any burning micturition, frequency, or urgency. MUSCULOSKELETAL/RHEUMATOLOGICAL: As described in HPI. ENDOCRINE: Denies any polyuria or polydipsia. The rest of the 14 point review of systems is negative. Home medications include: 1. Aspirin. 2. Levothyroxine. 3. Tamsulosin. 4. Tiatropium. 5. Cyanocobalamin. 6. Cholecalciferol. 7. Esomeprazole. 8. Bactrim. 9. Guaifenesin. ALLERGIES: NO KNOWN DRUG ALLERGIES. Past medical history is significant for: 1. COPD. 2. Gastroesophageal reflux disease. 3. Hypothyroidism. 4. Skin cancer which is in remission ( ) 5. Hernia repair. 6. Joint replacement surgery. 7. Orthopedic surgery. 8. Cataract extraction. FAMILY HISTORY: Father had some kind of cancer and mother had coronary artery disease and brother had bone cancer. PHYSICAL EXAMINATION: VITAL SIGNS: Temperature 98.6, pulse of 97, respiratory rate of 16. Blood pressure is 101/53. Saturating at 95% on room air. GENERAL: The patient is alert and oriented x3, not in any acute distress. Well developed, well nourished. HEENT: Pupils are round and equally reacting to light. EOMI. No scleral icterus. No conjunctival pallor. Normocephalic, atraumatic. No pharyngeal erythema. No thyromegaly. CARDIOVASCULAR: S1 and S2 present. No murmurs, rubs, or gallops. PULMONARY: Chest is clear to auscultation, no wheezing or crackles. ABDOMEN: Soft, nontender, nondistended, normoactive bowel sounds. No palpable organomegaly. MUSCULOSKELETAL/DERMATOLOGIC: Patient's surgical site area does have cellulitis and a small abscess measuring about 4 x 4 cm. Patient has localization of temperature and tenderness to touch and severe sharp pain in that area. EXTREMITIES: No cyanosis, clubbing, or pedal edema. NEUROLOGICAL: Gross neurological examination did not reveal any focal deficits. LABORATORY DATA: CBC, CMP are abnormal for low sodium of 132, probably hypovolemic hyponatremia. Lactic acid was 3.3, now 1.8. Patient will be continued on IV fluids. ASSESSMENT AND PLAN: 1. Sepsis secondary to right shoulder abscess, post recent shoulder surgery. Patient will be started on vancomycin and IV fluids, as mentioned above. 2. Severe sepsis and lactic acidosis secondary to sepsis, for which patient will need to be continued on IV fluids. 3. Hypovolemic hyponatremia, expected to improve with IV fluids. Will repeat electrolytes and labs tomorrow. 4. Gastroesophageal reflux disease. 5. Chronic obstructive pulmonary disease without any acute exacerbation. 6. Hypothyroidism. For above-mentioned chronic medical problems, I will go ahead and continue home medications. Will use ketorolac for pain instead of morphine because of his age. Will discuss with Dr. Gonzalez regarding abscess drainage today, if it can be done, and his severe lethargy secondary to sepsis. [facility] CENTERMiguel
[2017-03-29] MEDS: MORPHINE SULFATE 4 MG/ML SYRINGE IVP PRN ×2 (16:12→20:40)
[2017-03-29] MEDS: VANCOMYCIN 1,500 MG in SODIUM CHLORIDE 0.9% 250 ML IVPB SCH (18:18)
[2017-03-30] MEDS: SODIUM CHLORIDE 0.9% 1,000 ML IV SCH ×3 (07:29→20:05)
[2017-03-30] MEDS: ALBUTEROL NEBULIZED 2.5 MG/3 ML INHALATION PRN ×3 (07:36→19:05)
[2017-03-30] MEDS: TIOTROPIUM 18 MCG/PUFF INHALER INHALATION SCH (07:36)
[2017-03-30 08:23] LABS: Anion Gap 10 mmol/L; Blood Urea Nitrogen 11 mg/dL (9-20); Carbon Dioxide 19 mmol/L (22-30); Chloride 101 mmol/L (98-107); Glucose 102 mg/dL (74-99); Non-African American GFR(MDRD) >60 (>60 ml/min/1.73 sqM); Potassium 4.2 mmol/L (3.5-5.1); Sodium 130 mmol/L (137-145)
--- NOTE | 2017-03-30 10:05 | PN ---
87-year-old admitted with abscess of the right shoulder area and patient is going for drainage of abscess today and will continue with vancomycin. Patient's pain is better controlled with morphine. REVIEW OF SYSTEMS: CARDIOVASCULAR: No chest pain, no orthopnea, no PND, no palpitations. PULMONARY: Denied any shortness of breath. No cough or hemoptysis. GASTROINTESTINAL: No diarrhea, nausea or vomiting. No abdominal pain. Normoactive bowel sounds. NEUROLOGIC: No headaches, no weakness, no numbness. Dermatologic as described in HPI. MUSCULOSKELETAL: as described in HPI. Medications are reviewed. PHYSICAL EXAMINATION: Temperature 97.2, pulse 100, respiratory rate of 18, blood pressure is 138/64, saturating at 97% on 2 L O2 by nasal cannula. GENERAL: The patient is alert and oriented x3, not in any acute distress. Well developed, well nourished. HEENT: Pupils are round and equally reacting to light. EOMI. No scleral icterus. No conjunctival pallor. Normocephalic, atraumatic. No pharyngeal erythema. No thyromegaly. CARDIOVASCULAR: S1 and S2 present. No murmurs, rubs, or gallops. PULMONARY: Chest is clear to auscultation, no wheezing or crackles. ABDOMEN: Soft, nontender, nondistended, normoactive bowel sounds. No palpable organomegaly. MUSCULOSKELETAL: No change compared to yesterday. EXTREMITIES: No cyanosis, clubbing, or pedal edema. NEUROLOGICAL: Gross neurological examination did not reveal any focal deficits. SKIN: No rashes. 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 We will continue to monitor it. ASSESSMENT AND PLAN: 1. Sepsis secondary to right shoulder abscess and patient continued the vancomycin. The patient is going for abscess drainage today. 2. Lactic acidosis secondary to severe sepsis. 3. 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 We will continue to monitor. 4. Gastroesophageal reflux disease. 5. Chronic obstructive pulmonary disease without any acute exacerbation. 6. Hypothyroidism. PLAN: Continue present medications, antibiotics. We will await the cultures from the abscess drainage area.
[2017-03-30] MEDS ORDERED: IV FLUID CONTINUATION 1,000 ML IV ONE (10:12)
[2017-03-30] MEDS ORDERED: KETAMINE 10 MG/ML 20 ML VIAL ONE (10:12)
[2017-03-30] MEDS ORDERED: ceFAZolin 2,000 MG in SODIUM CHLORIDE 0.9% 1,000 ML IRRIGATION ONE (10:12)
[2017-03-30] MEDS ORDERED: PROPOFOL 10 MG/ML 20 ML VIAL IV ONE (10:12)
[2017-03-30] MEDS ORDERED: MIDAZOLAM 2 MG/2 ML VIAL ONE (10:12)
[2017-03-30] MEDS ORDERED: ALBUTEROL NEBULIZED 2.5 MG/3 ML INHALATION ONE (11:03)
[2017-03-30] MEDS ORDERED: MORPHINE SULFATE 4 MG/ML SYRINGE IVP ONE (11:09)
[2017-03-30] MEDS ORDERED: SENNOSIDES-DOCUSATE SODIUM 1 EACH TAB PO PRN (11:15)
[2017-03-30] MEDS ORDERED: HYDROmorphone 1 MG/ML 1 ML SYRINGE IVP PRN (11:15)
[2017-03-30] MEDS ORDERED: BENZOCAINE/MENTHOL LOZENG 1 EACH LOZENGE MUCOUS MEM PRN (11:15)
--- NOTE | 2017-03-30 11:15 | P.OP ---
Date of Procedure: 03/30/17 Preoperative Diagnosis: Right shoulder wound infection Status post open rotator cuff surgery approximately 3 weeks ago Postoperative Diagnosis: Same plus evidence of deep space infection to the clavicle and rotator cuff Anesthesia: MAC Pathology: other (Deep wound cultures sent to microbiology 2) Condition: stable Disposition: PACU Description of Procedure: Preoperative diagnosis: Right shoulder wound infection, status post right shoulder rotator cuff surgery approximately 3 weeks out Postoperative diagnosis: Same plus evidence of deep infection to the clavicle Procedure: Irrigation and excisional debridement of right shoulder wound infection Surgeon: Dr. Gonzalez Asst.: None Anesthesia: Mac Estimated blood loss: Approximately 5 mL Components implanted: None Disposition: To recovery room in good stable condition Operative indications The patient has had chronic issues with his right shoulder. After failing conservative treatment he underwent surgical intervention approximately [address] CARDENAS for rotator cuff surgery and decompression at his right shoulder. His initial recovery was somewhat uneventful however over the past several days he has been developing increased redness and soreness at his right shoulder. He was seen in the clinic where he had aspiration of the area without any findings of pus. He was felt to be developing cellulitis and started on oral antibiotics. He developed fevers and worsening symptoms and presented to the hospital where he was admitted regards to right shoulder wound infection and started on IV antibiotics. Overnight he has been making some progress with the antibiotics. He was initially quite febrile with a temperature of 103 but he has not had further fevers overnight. He was having some improvement in the erythema and his shoulder but there was obvious fluid collection and fluid under pressure at his right shoulder wound. We discussed the different treatment options with the patient his family as well as with the medicine service. We felt that the best option for him would be to pursue open irrigation and debridement of the right shoulder wound. We discussed the risks , occasions alternatives and benefits of surgery in regards to his issues. We discussed risks of bleeding risk of infection risk of need for further surgery and risk of decreased loss of motion loss of function nerve damage from postanesthesia all were explained to him all of his questions wrench the best mobility later she can understand and he went to proceed with surgical intervention. Operative summary After obtaining informed consent evaluation by anesthesia, preoperative evaluation and clearance for medical service, the patient was identified and prepped [place] area and the surgical site was marked. There brought to the operating room where the given appropriate anesthesia by the anesthesia department in standard fashion without any complications. Once the anesthesia was established we were able to position the patient in a supine position and a beachchair position on his operative table. He was sedated with his airway continue a monitored by anesthesia with MAC anesthesia . His right shoulder is prepped and draped in normal standard fashion after being careful prep and drape and pad any bony prominences and pressure points. His head and C-spine were also normal neutral position. An appropriate keystone protocol appropriate timeout was completed and we were able to proceed with the surgery. Utilizing the prior incision a new incision was made approximately 3 cm in length. There was obvious pus emitting from the wound site. With further squeezing of the area there is significant amount of pus that was able to be extruded. Deep wound cultures 2 were taken. I was able to palpate down to field distal clavicle. I there was some denuded tissue at which was excised sharply and with scissors and rasps. I was able to excise the denuded tissue to a good base. The wound was then copiously irrigated and suctioned dry with approximately a liter of antibiotic impregnated solution. The wound was explored and there is no further purulence noted. There is a good base. There is some space noted and I decided place iodoform packing gauze into the wound site. I then proceeded with closure. The wound was closed primarily with 3-0 nylon being careful not to suture in the eye gauze. The wound was cleaned and dried and dressed with 4 x 4's ABDs and tape. The drapes were broken down the patient was woken up by anesthesia transferred back to his hospital bed and brought to recovery room in good stable condition area he will continue his antibiotics through his IV and medical management. We will pull the packing in 1-2 days and continue local wound care. We will to continue to follow him closely throughout his postoperative course.
[2017-03-30] MEDS: PANTOPRAZOLE 40 MG TABLET PO SCH (12:00)
[2017-03-30] MEDS: CYANOCOBALAMIN 500 MCG TAB PO SCH (12:00)
[2017-03-30] MEDS: TAMSULOSIN 0.4 MG CAP.ER.24H PO SCH ×2 (12:00→20:05)
[2017-03-30] MEDS: CHOLECALCIFEROL 1,000 UNIT TAB PO SCH (12:00)
[2017-03-30] MEDS: ASPIRIN 81 MG CHEW PO SCH (12:00)
[2017-03-30] MEDS: LEVOTHYROXINE 125 MCG TAB PO SCH (12:00)
[2017-03-30 12:35] LABS: Basophils % (A) 1 %; CH 30.2; CHCM 32.3; Eosinophils # (A) 0.2 k/uL (0-0.7); Eosinophils % (A) 4 %; HCT 39.6 % (39.0-53.0); HDW 2.44; HGB 12.9 gm/dL (13.0-17.5); Luc # (Auto) 0.12; Luc % (Auto) 2; Lymphocytes # (A) 0.6 k/uL (1.0-4.8); Lymphocytes % (A) 12 %; MCH 30.7 pg (25.0-35.0); MCHC 32.6 g/dL (31.0-37.0); MCV 94.1 fL (80.0-100.0); Mean Platelet Volume 8.1; Monocytes # (A) 0.3 k/uL (0-1.0); Monocytes % (A) 6 %; Neutrophils # (A) 3.9 k/uL (1.3-7.7); Neutrophils % (A) 75 %; RBC 4.21 m/uL (4.30-5.90); RDW 13.8 % (11.5-15.5); WBC 5.2 k/uL (3.8-10.6); WBC (Perox) 5.55
[2017-03-30] MEDS: MORPHINE SULFATE 4 MG/ML SYRINGE IVP PRN ×2 (14:17→23:08)
[2017-03-30] MEDS: VANCOMYCIN 1,500 MG in SODIUM CHLORIDE 0.9% 250 ML IVPB SCH (17:51)
[2017-03-31] MEDS: MORPHINE SULFATE 4 MG/ML SYRINGE IVP PRN ×4 (04:01→20:18)
[2017-03-31] MEDS: SODIUM CHLORIDE 0.9% 1,000 ML IV SCH ×3 (04:20→05:31)
[2017-03-31] MEDS: TIOTROPIUM 18 MCG/PUFF INHALER INHALATION SCH (07:26)
[2017-03-31] MEDS: ALBUTEROL NEBULIZED 2.5 MG/3 ML INHALATION PRN ×3 (07:26→19:24)
[2017-03-31] MEDS: LEVOTHYROXINE 125 MCG TAB PO SCH (09:05)
[2017-03-31] MEDS: CYANOCOBALAMIN 500 MCG TAB PO SCH (09:11)
[2017-03-31] MEDS: ASPIRIN 81 MG CHEW PO SCH (09:11)
[2017-03-31] MEDS: PANTOPRAZOLE 40 MG TABLET PO SCH (09:11)
[2017-03-31] MEDS: CHOLECALCIFEROL 1,000 UNIT TAB PO SCH (09:12)
[2017-03-31] MEDS: guaiFENesin-DM 600/30MG 1 EACH TAB.ER.12H PO SCH (09:38)
--- NOTE | 2017-03-31 10:16 | P.PN ---
Subjective Principal diagnosis: Status post incision and drainage right shoulder This is a 87 year-old male post incision and drainage right shoulder by Dr. Gonzalez. This is post-op day 1. The patient did undergo a open rotator cuff repair of the right shoulder on 03/07/[address] Loredo originally. The patient' s postoperative course was uneventful up until last week where he developed redness and warmth to the right shoulder and the patient was started on on . The patient presented to the emergency department due to fevers and not feeling well. The patient was evaluated at the bedside today. The patient denies nausea, vomiting, abdominal pain, and chest pain this morning. The patient is short of breath while sitting in chair at the bedside. He states his pain is controlled at this time. The patient states that he still is not feeling well. Objective - Vital Signs Vital signs: Vital Signs Temp 97.9 F 03/31/17 08:00 Pulse 113 H 03/31/17 08:00 Resp 17 03/31/17 08:00 BP 145/81 03/31/17 08:00 Pulse Ox 92 L 03/31/17 08:00 Intake & Output 03/30/17 03/31/17 03/31/17 18:59 06:59 18:59 Intake Total 806 1280 Output Total 405 Balance 401 1280 Weight 81 kg Intake: IV 306 Intake, IV Titration 500 800 Amount Sodium Chloride 0.9% 1, 800 000 ml @ 100 mls/hr IV . Q10H SH[facility] Rx#:[id number] Sodium Chloride 0.9% 1, 500 000 ml @ 75 mls/hr IV . [id number] SHAD[facility] Rx#:[id number] Oral 480 Output: Urine 400 Estimated Blood Loss 5 Other: Voiding Method Urinal Urinal # Voids 2 3 - Exam The patient is alert and orientated x3. He is visibly short of breath while sitting in chair. Dressing is clean dry and intact. The patient has normal range of motion of the right elbow, wrist, and hand. Limited range of motion to the right shoulder due to recent surgery. Sensation and circulatory status is intact. - Labs CBC & Chem 7: 03/30/17 07:14 03/30/17 07:14 Labs: Abnormal Lab Results - Last 24 Hours (Table) 03/30/17 Range/Units 07:14 RBC 4.21 L (4.30-5.90) m/uL Hgb 12.9 L (13.0-17.5) gm/dL Lymphocytes # 0.6 L (1.0-4.8) k/uL Microbiology - Last 24 Hours (Table) 03/30/17 10:35 Gram Stain - Preliminary Shoulder - Right Wound Culture - Preliminary 03/30/17 10:35 Gram Stain - Preliminary Shoulder - Right Wound Culture - Preliminary 03/30/17 10:35 Anaerobic Culture - Preliminary Shoulder - Right 03/30/17 10:35 Anaerobic Culture - Preliminary Shoulder - Right Assessment and Plan (1) Status post incision and drainage Status: Acute (2) Cellulitis Status: Acute (3) Sepsis Status: Acute Plan: The clinical and operative findings were discussed with the patient. We are awaiting wound cultures results. Blood cultures are currently negative. He'll continue on vancomycin IV. We will consult infectious disease, Dr. Neumann today for antibiotic recommendations. Continue to monitor vital signs. Right shoulder dressing to be changed and packed daily. We will continue to follow the patient closely and make further recommendations necessary.
[2017-03-31] MEDS: TAMSULOSIN 0.4 MG CAP.ER.24H PO SCH (10:29)
--- NOTE | 2017-03-31 10:36 | XR ---
EXAMINATION TYPE: XR chest 1V DATE OF EXAM: 03/31/2017 10:25 AM HISTORY: Shortness of breath. COMPARISON: 03/28/2017 TECHNIQUE: Single view of the chest is submitted. FINDINGS: Demonstrated are scattered senescent parenchymal change. Right lower lobe infiltrate is noted. Correlate for pneumonia. Follow-up until resolution is advised. The heart is stable. Hilar and mediastinal structures are within normal limits. Degenerative changes are seen of the dorsal spine. IMPRESSION: 1. Right lower lobe infiltrate is noted. Correlate for pneumonia. Follow-up until resolution is advi sed.
[2017-03-31 10:45] LABS: Anion Gap 9 mmol/L; Blood Urea Nitrogen 9 mg/dL (9-20); Calcium 8.1 mg/dL (8.4-10.2); Carbon Dioxide 18 mmol/L (22-30); Chloride 102 mmol/L (98-107); Glucose 153 mg/dL (74-99); Non-African American GFR(MDRD) >60 (>60 ml/min/1.73 sqM); Potassium 4.5 mmol/L (3.5-5.1); Sodium 129 mmol/L (137-145)
--- NOTE | 2017-03-31 11:27 | PN ---
An 87-year-old admitted with right shoulder abscess. Patient's oxygen requirements have gone up and patient clinically lungs sound good. I obtained a chest x-ray although it was read as right lower lobe pneumonia. I do not believe patient has right lower lobe pneumonia. Patient appears to have pulmonary edema and patient's hyponatremia is probably hypovolemic hyponatremia, from congestive heart failure. I will obtain an echocardiogram and patient will be started on Lasix 40 IV b.i.d. and close electrolyte monitoring and kidney function monitoring. Patient is not feeling well. REVIEW OF SYSTEMS: GENERAL: As described in HPI. CARDIOVASCULAR: No chest pain, no orthopnea, no PND, no palpitations. PULMONARY: Denied any shortness of breath. No cough or hemoptysis. GASTROINTESTINAL: No diarrhea, nausea or vomiting. No abdominal pain. Normoactive bowel sounds. NEUROLOGIC: No headaches, no weakness, no numbness. Medication changes as mentioned in the interval history. PHYSICAL EXAMINATION: VITAL SIGNS: Temperature 97.9, pulse of 100 and it is going up too. Patient is becoming tachycardic and going up to 113, blood pressure is 145/81. Saturating at 90% on 4 L of O2 nasal cannula. GENERAL: The patient is alert and oriented x3, not in any acute distress. Well developed, well nourished. HEENT: Pupils are round and equally reacting to light. EOMI. No scleral icterus. No conjunctival pallor. Normocephalic, atraumatic. No pharyngeal erythema. No thyromegaly. CARDIOVASCULAR: S1 and S2 present. No murmurs, rubs, or gallops. PULMONARY: Chest is clear to auscultation, no wheezing or crackles. ABDOMEN: Soft, nontender, nondistended, normoactive bowel sounds. No palpable organomegaly. MUSCULOSKELETAL: No joint swelling or deformity. NEUROLOGICAL: Gross neurological examination did not reveal any focal deficits. SKIN: No rashes. Right shoulder postsurgically packed, because of which I did not open the packing today. I will leave it up to Dr. Gonzalez who did incision and drainage. LABORATORY DATA: Basic metabolic profile is abnormal for low sodium of 129. ASSESSMENT AND PLAN: 1. Sepsis secondary to right shoulder abscess, continue with IV vancomycin. 2. Acute hypoxic respiratory failure secondary to congestive heart failure exacerbation. I do not know his ejection fraction and echocardiogram will be obtained. 3. Lactic acidosis due to severe sepsis which resolved. 4. Hypervolemic hyponatremia secondary to possible congestive heart failure exacerbation, patient expected to improve with Lasix. 5. Tachycardia secondary to hypoxemia. If patient does not improve with congestive heart failure management, then we may need a CT of the chest to rule out any pulmonary embolism. Patient is on DVT prophylaxis, subQ heparin. 6. Chronic obstructive pulmonary disease without any acute exacerbation. 7. Hypothyroidism.
[2017-03-31] MEDS: FUROSEMIDE 10 MG/ML 4 ML VIAL IV SCH (11:36)
--- NOTE | 2017-03-31 16:23 | P.PN ---
Progress Note - Text Patient is a very pleasant 87-year-old male who is seen and examined at the bedside after undergoing incision and drainage of the right shoulder performed by Dr. Kirill Hernandez surgery. He is status post right rotator cuff repair for by Dr. Frerdick Loredo on 03/08/2017. Patient states at the bedside he has some stiffness at the right shoulder but no significant pain. His no new complaints this morning. He has been eating and voiding without difficulty. Physical Exam: Patient is awake, alert, and oriented 3 Vital signs stable Good chest excursion with deep inspiration and expiration Abdomen soft nontender No signs or symptoms of DVT; no calf pain Ussing over the right shoulders move during physical examination; iodoform is removed and physical examination Some purulent discharge on the iodoform; no evidence of active purulent discharge Some bruising and erythema over the right shoulder at the surgical site No evidence of significant swelling over the incision site right shoulder Active full range of motion of the right elbow, wrist and all fingers the right hand without difficulty Neurovascular intact right upper extremity Assessment: Status post incision and drainage for right shoulder wound infection Shoulder pain Status post right rotator cuff repair approximately 3 weeks ago Plan: 1. Following incision and drainage, dressing has been changed this morning and iodoform has been removed. New dressing has been reapplied with Adaptic, 4 x 4' s, AVD pad, and paper tape. He was daily dressing changes as needed. At this time, patient will be followed by Dr. Loredo and Antonietta DUTTON for further evaluation who will currently plan for a consult with Dr. Neumann in infectious disease. Culture results are currently pending. Patient will continue with treatment per their recommendations. 2. Patient currently waiting for further evaluation by Dr. Neumann in infectious disease 3. Dr. Loredo and Antonietta DUTTON will continue with treatment for this patient 4. I have discussed this in detail with Dr. Kirill Gonzalez and he agrees with this plan
[2017-03-31] MEDS ORDERED: VANCOMYCIN TROUGH DUE 1 EACH MISC MISCELLANE ONE (17:00)
[2017-03-31] MEDS: HEPARIN SODIUM,PORCINE 5,000 UNIT/ML 1 ML VIAL SQ SCH (17:00)
[2017-03-31] MEDS: VANCOMYCIN 1,500 MG in SODIUM CHLORIDE 0.9% 250 ML IVPB SCH (17:56)
--- NOTE | 2017-03-31 20:38 | P.CONS ---
History of Present Illness - Reason for Consult Consult date: 03/31/17 - Chief Complaint Pain right shoulder - History of Present Illness Very pleasant 87-year-old male who does not appear to be his stated age presents to hospital with severe pain to his right shoulder as well as significant fevers. Approximately 3 weeks prior he underwent a right rotator cuff repair by Dr. Loredo. He was doing relatively well postoperatively. However one week ago he started to have some erythema and some swelling to the shoulder area. He was placed on oral antibiotic therapy with Bactrim. Aspiration was not successful for any purulent material. The patient then presented to the emergency center with a temperature 103 and severe pain to his right shoulder. He is not particularly the operating room where the incision and drainage to the right shoulder occur where is evidence of grossly purulent material. He is now feeling considerably better. Still has some localized pain from the surgery. Fevers have improved. Chills and right ears have resolved. Other than the pain he is doing relatively well. He is eating and having no difficulties with nausea and emesis or diarrhea. Review of Systems HEENT:Denies headache or acute visual change. Denies sinus or mouth discomforts. Denies neck stiffness or pain. Denies significant oral cavity pain. Denies difficulty on swallowing. Lungs: Denies significant shortness of breath, cough, sputum production, or hemoptysis. Cardiovascular: Denies significant shortness of breath, chest pain, chest wall pain, orthopnea, dyspnea on exertion, syncope Gastrointestinal:Denies nausea, vomiting, diarrhea, constipation, hematemesis, melena, hematochezia. No no significant change of bowel habit noticed. Musculoskeletal: Pain in the right shoulder as per the HPI Skin: Denies new rash or lesions. No new ulcers or wounds are related.. Neuro: Denies headache or visual change. Denies any new onset weakness or difficulty with ambulation. Denies falls or seizures. Psychiatric:Denies anxiety or depression. Endocrine: Denies significant fatigue, denies significant weight loss or weight gain. Past Medical History Past Medical History: Cancer, COPD, GERD/Reflux, Hearing Disorder / Deafness, Musculoskeletal Disorder (rotator cuff tear status post surgery on March [address] CARDENAS), Thyroid Disorder Additional Past Medical History / Comment(s): polyps removed in bladder. 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 Rotator Cuff Past Anesthesia/Blood Transfusion Reactions: No Reported Reaction Past Psychological History: No Psychological Hx Reported Additional Psychological History / Comment(s): to his second . Retired from [email or web address]. Was in the [employer] stationed through [place] to international travel since then. No animal exposures. Adult children are healthy. Stopped tobacco use in 1980 with an approximate [id number] history of smoking. No severe alcohol use or recreational drug use Smoking Status: Former smoker Past Alcohol Use History: Occasional Additional Past Alcohol Use History / Comment(s): STARTED SMOKING AT AGE 21 QUIT 1980 SMOKED 2PPD Past Drug Use History: None Reported - Past Family History Father History Unknown: Yes Family Medical History: Cancer Additional Family Medical History / Comment(s): prostate Mother History Unknown: Yes Family Medical History: Coronary Artery Disease (CAD) Brother(s) Family Medical History: Cancer Additional Family Medical History / Comment(s): prostate, BONE CANCER Medications and Allergies Home Medications and Allergies Comment(s): Current Medications Acetaminophen (Tylenol Tab) 650 mg PO Q6HR PRN PRN Reason: Mild Pain or Fever > 100.5 Last Admin: 03/30/17 15:15 Dose: 650 mg Hydrocodone Bitart/Acetaminophen (Niles 5-325) 1 each PO Q4HR PRN PRN Reason: Moderate Pain Last Admin: 03/29/17 09:03 Dose: 1 each Albuterol Sulfate (Ventolin Nebulized) 2.5 mg INHALATION RT-Q6H PRN PRN Reason: Shortness Of Breath Last Admin: 03/31/17 19:24 Dose: 2.5 mg Aspirin (Aspirin) 81 mg PO DAILY [facility] Last Admin: 03/31/17 09:11 Dose: 81 mg Benzocaine/Menthol (Cepacol Lozenge) 1 each MUCOUS MEM Q4HR PRN PRN Reason: Sore Throat Cholecalciferol (Vitamin D3) 1,000 unit PO DAILY [facility] Last Admin: 03/31/17 09:12 Dose: 1,000 unit Cyanocobalamin (Vitamin B-12) 1,000 mcg PO DAILY [facility] Last Admin: 03/31/17 09:11 Dose: 1,000 mcg Furosemide (Lasix) 40 mg IV Q12HR [facility] Last Admin: 03/31/17 11:36 Dose: 40 mg Guaifenesin/Dextromethorphan (Mucinex Dm) 1 each PO Q48H [facility] Last Admin: 03/31/17 09:38 Dose: 1 each Heparin Sodium (Porcine) (Heparin) 5,000 unit SQ Q8HR [facility] Last Admin: 03/31/17 17:00 Dose: 5,000 unit Hydromorphone HCl (Dilaudid) 0.5 mg IVP Q4HR PRN PRN Reason: Severe Pain Vancomycin HCl 1,500 mg/ (Sodium Chloride) 250 mls @ 125 mls/hr IVPB Q24H [facility] Last Admin: 03/31/17 17:56 Dose: 125 mls/hr Ketorolac Tromethamine (Toradol) 15 mg IVP Q6HR PRN PRN Reason: Moderate Pain Stop: 04/03/17 10:10 Last Admin: 03/29/17 10:35 Dose: 15 mg Levothyroxine Sodium (Synthroid) 125 mcg PO DAILY [facility] Last Admin: 03/31/17 09:05 Dose: 125 mcg Morphine Sulfate (Morphine Sulfate (Inj)) 4 mg IVP Q4HR PRN PRN Reason: Pain Last Admin: 03/31/17 20:18 Dose: 4 mg Naloxone HCl (Narcan) 0.2 mg IV Q2M PRN PRN Reason: Opioid Reversal Ondansetron HCl (Zofran) 4 mg IVP Q8HR PRN PRN Reason: Nausea And Vomiting Last Admin: 03/30/17 14:15 Dose: 4 mg Pantoprazole Sodium (Protonix) 40 mg PO DAILY [facility] Last Admin: 03/31/17 09:11 Dose: 40 mg Senna/Docusate Sodium (Senokot-S) 2 each PO HS PRN PRN Reason: Constipation Tamsulosin HCl (Flomax) 0.4 mg PO BID [facility] Last Admin: 03/31/17 10:29 Dose: 0.4 mg Tiotropium [place] (Spiriva) 1 puff INHALATION RT-DAILY [facility] Last Admin: 03/31/17 07:26 Dose: 1 puff Home Medications Medication Instructions Recorded Confirmed Type Aspirin 81 mg PO DAILY 05/24/16 03/28/17 History Levothyroxine Sodium [Synthroid] 125 mcg PO DAILY 05/24/16 03/28/17 History Tamsulosin [Flomax] 0.4 mg PO BID 05/24/16 03/28/17 History Tiotropium [place] [Spiriva] 1 cap INHALATION RT-DAILY 05/24/16 03/28/17 History Biotin 5 mg PO DAILY 09/09/16 03/28/17 History Cyanocobalamin [Vitamin B-12] 1,000 mcg PO DAILY 09/09/16 03/28/17 History Albuterol Sulfate [Proair Hfa] 1 - 2 puff INHALATION RT-Q6H PRN 03/05/17 History Cholecalciferol [Vitamin D3] 1,000 unit PO DAILY 03/28/17 03/28/17 History Esomeprazole Magnesium [NexIUM] 40 mg PO DAILY 03/28/17 03/28/17 History Sulfamethox-Tmp 800-160Mg [Bactrim 1 tab PO Q12HR 03/28/17 03/28/17 History DS 800-160 mg] guaiFENesin-DM 600/30MG [Mucinex 1 tab PO Q48H 03/28/17 03/28/17 History Dm] Allergies Allergy/AdvReac Type Severity Reaction Status Date / Time No Known Allergies Allergy Verified 03/28/17 20:55 Physical Exam Vitals: Vital Signs Temp Pulse Pulse Pulse Resp BP Pulse Ox 03/31/17 19:35 92 03/31/17 19:24 88 92 L 03/31/17 16:00 86 98 17 03/31/17 15:51 98.2 F 98 17 91/66 96 03/31/17 12:46 92 03/31/17 12:34 92 03/31/17 08:00 97.9 F 86 113 H 17 145/81 92 L 03/31/17 07:42 100 03/31/17 07:26 96 03/30/17 22:22 98.1 F 86 20 96/58 97 Intake and Output 03/31/17 03/31/17 03/31/17 06:59 14:59 22:59 Intake Total 1040 1050 Output Total 400 200 Balance 1040 650 -200 Intake: Intake, IV Titration 800 750 Amount Sodium Chloride 0.9% 1, 800 500 000 ml @ 100 mls/hr IV . Q10H [facility] Rx#:[id number] Vancomycin 1,500 mg In 250 Sodium Chloride 0.9% 250 ml @ 125 mls/hr IVPB Q24H [facility] Rx#:[id number] Oral 240 300 Output: Urine 400 200 Other: Voiding Method Urinal Urinal Urinal # Voids 3 6 6 Weight 81 kg 81 kg Patient Weight 04/01/17 06:59 Weight 81 kg Pleasant 87-year-old male who is comfortable since his surgery, much less pain and resolution of fever HEENT: Anicteric conjunctiva are pink and moist nasal mucosa grossly intact without significant lesions, there is no thrush. Denture Neck: The neck is supple without significant lymphadenopathy or thyromegaly. Lungs: Symmetrical air entry, rare expiratory wheeze, no significant bronchial sounds no dullness or egophony Heart: Regular rate and rhythm with an audible S1-S2, no S3 positive S4 There is no significant murmur click or rub, PMI was nondisplaced. Abdomen: Positive bowel sounds soft and nontender without palpable masses or organomegaly. There was no guarding or rebound. Extremities: Left upper extremity is normal. Right upper extremity shows of the surgical dressing in place and the recent incision and drainage in the shoulder. There is no significant drainage being noted. Site is dust box tender. No axillary lymphadenopathy is noted right or left. No abnormal lymph nodes are noted. Lower extremities with some edema. Neuro: Awake alert oriented to person place and time. There are no acute new gross focal sensory motor deficits. Results CBC & Chem 7: 03/30/17 07:14 03/31/17 09:27 Labs: Abnormal Lab Results - Last 24 Hours (Table) 03/31/17 Range/Units 09:27 Sodium 129 L (137-145) mmol/L Carbon Dioxide 18 L (22-30) mmol/L Glucose 153 H (74-99) mg/dL Calcium 8.1 L (8.4-10.2) mg/dL Microbiology - Last 24 Hours (Table) 03/30/17 10:35 Gram Stain - Preliminary Shoulder - Right Wound Culture - Preliminary 03/30/17 10:35 Gram Stain - Preliminary Shoulder - Right Wound Culture - Preliminary 03/30/17 10:35 Anaerobic Culture - Preliminary Shoulder - Right 03/30/17 10:35 Anaerobic Culture - Preliminary Shoulder - Right Laboratory Results WBC 5.2 k/uL (3.8-10.6) 03/30/17 07:14 RBC 4.21 m/uL (4.30-5.90) L 03/30/17 07:14 Hgb 12.9 gm/dL (13.0-17.5) L 03/30/17 07:14 Hct 39.6 % (39.0-53.0) 03/30/17 07:14 MCV 94.1 fL (80.0-100.0) 03/30/17 07:14 MCH 30.7 pg (25.0-35.0) 03/30/17 07:14 MCHC 32.6 g/dL (31.0-37.0) 03/30/17 07:14 RDW 13.8 % (11.5-15.5) 03/30/17 07:14 Plt Count 229 k/uL (150-450) 03/30/17 07:14 Neutrophils % 75 % 03/30/17 07:14 Lymphocytes % 12 % 03/30/17 07:14 Monocytes % 6 % 03/30/17 07:14 Eosinophils % 4 % 03/30/17 07:14 Basophils % 1 % 03/30/17 07:14 Neutrophils # 3.9 k/uL (1.3-7.7) 03/30/17 07:14 Lymphocytes # 0.6 k/uL (1.0-4.8) L 03/30/17 07:14 Monocytes # 0.3 k/uL (0-1.0) 03/30/17 07:14 Eosinophils # 0.2 k/uL (0-0.7) 03/30/17 07:14 Basophils # 0.0 k/uL (0-0.2) 03/30/17 07:14 PT 12.3 sec (9.0-12.0) H 03/28/17 20:16 INR 1.2 (<1.1) 03/28/17 20:16 APTT 26.6 sec (22.0-30.0) 03/28/17 20:16 Sodium 129 mmol/L (137-145) L 03/31/17 09:27 Potassium 4.5 mmol/L (3.5-5.1) 03/31/17 09:27 Chloride 102 mmol/L (98-107) 03/31/17 09:27 Carbon Dioxide 18 mmol/L (22-30) L 03/31/17 09:27 Anion Gap 9 mmol/L 03/31/17 09:27 BUN 9 mg/dL (9-20) 03/31/17 09:27 Creatinine 0.85 mg/dL (0.66-1.25) 03/31/17 09:27 Est GFR (MDRD) Af Amer >60 (>60 ml/min/1.73 sqM) 03/31/17 09:27 Est GFR (MDRD) Non-Af >60 (>60 ml/min/1.73 sqM) 03/31/17 09:27 Glucose 153 mg/dL (74-99) H 03/31/17 09:27 Plasma Lactic Acid Raul 1.8 mmol/L (0.7-2.0) 03/29/17 00:15 Calcium 8.1 mg/dL (8.4-10.2) L 03/31/17 09:27 Total Bilirubin 0.8 mg/dL (0.2-1.3) 03/28/17 20:16 AST 27 U/L (17-59) 03/28/17 20:16 ALT 32 U/L (21-72) 03/28/17 20:16 Alkaline Phosphatase 57 U/L (38-126) 03/28/17 20:16 Troponin I 0.014 ng/mL (0.000-0.034) 03/29/17 07:46 Total Protein 6.7 g/dL (6.3-8.2) 03/28/17 20:16 Albumin 3.8 g/dL (3.5-5.0) 03/28/17 20:16 Urine Color Yellow 03/28/17 20:16 Urine Appearance Clear (Clear) 03/28/17 20:16 Urine pH 6.5 (5.0-8.0) 03/28/17 20:16 Ur Specific Luckey 1.021 (1.001-1.035) 03/28/17 20:16 Urine Protein Trace (Negative) H 03/28/17 20:16 Urine Glucose (UA) Negative (Negative) 03/28/17 20:16 Urine Ketones Negative (Negative) 03/28/17 20:16 Urine Blood Negative (Negative) 03/28/17 20:16 Urine Nitrite Negative (Negative) 03/28/17 20:16 Urine Bilirubin Negative (Negative) 03/28/17 20:16 Urine Urobilinogen 2.0 mg/dL (<2.0) 03/28/17 20:16 Ur Leukocyte Esterase Negative (Negative) 03/28/17 20:16 Vancomycin Trough 5.2 ug/mL 03/31/17 17:28 Microbiology 03/30/17 10:35 Shoulder - Right Gram Stain - Preliminary 03/30/17 10:35 Shoulder - Right Wound Culture - Preliminary 03/30/17 10:35 Shoulder - Right Gram Stain - Preliminary 03/30/17 10:35 Shoulder - Right Wound Culture - Preliminary 03/28/17 20:16 Blood Blood Culture - Preliminary No Growth after 48 hours 03/30/17 10:35 Shoulder - Right Anaerobic Culture - Preliminary 03/30/17 10:35 Shoulder - Right Anaerobic Culture - Preliminary 03/28/17 20:16 Urine,Voided Urine Culture - Final Assessment and Plan (1) Septic arthritis of shoulder, right Narrative/Plan: Pleasant 87 year old male presents to hospital with increasing pain and swelling to his right shoulder. It is noted he had a rotator cuff repair by me 3 weeks ago. Is going well to about a week before admission. Patient was seen in the office for some erythema and swelling. Was placed on antibiotic therapy and had an aspiration attempt. Despite antibiotic therapy he markedly worsened. Because he has been admitted and has had the incision and drainage to the shoulder. He is not clinically much improved. He's had some hyponatremia likely in the basis of his significant pain and medications. He is being monitored. As far as infection cultures are pending. Is receiving antibiotic therapy with vancomycin which will give coverage for the likely pathogens. Unclear if he will receive antibiotic therapy at home or at an outpatient center. Elevated lactic acid admission is resolved. Based on laboratory is requested including a pre-albumin and will monitor. Status: Acute (2) Pain in right shoulder Status: Acute (3) Hyponatremia Status: Acute
[2017-03-31 23:41] LABS: C Reactive Protein 186.9 mg/L (<10.0)
[2017-04-01] MEDS: HEPARIN SODIUM,PORCINE 5,000 UNIT/ML 1 ML VIAL SQ SCH ×4 (00:50→21:29)
[2017-04-01] MEDS: FUROSEMIDE 10 MG/ML 4 ML VIAL IV SCH ×3 (00:50→21:27)
[2017-04-01] MEDS: TAMSULOSIN 0.4 MG CAP.ER.24H PO SCH ×3 (00:50→21:28)
[2017-04-01] MEDS: MORPHINE SULFATE 4 MG/ML SYRINGE IVP PRN ×4 (00:50→21:28)
[2017-04-01] MEDS: ALBUTEROL NEBULIZED 2.5 MG/3 ML INHALATION PRN ×3 (07:09→19:51)
[2017-04-01] MEDS: TIOTROPIUM 18 MCG/PUFF INHALER INHALATION SCH (07:09)
[2017-04-01] MEDS: ASPIRIN 81 MG CHEW PO SCH (07:28)
[2017-04-01] MEDS: LEVOTHYROXINE 125 MCG TAB PO SCH (07:28)
[2017-04-01] MEDS: PANTOPRAZOLE 40 MG TABLET PO SCH (07:29)
[2017-04-01] MEDS: CYANOCOBALAMIN 500 MCG TAB PO SCH (07:29)
[2017-04-01] MEDS: CHOLECALCIFEROL 1,000 UNIT TAB PO SCH (07:29)
[2017-04-01 08:26] LABS: Anion Gap 8 mmol/L; Blood Urea Nitrogen 11 mg/dL (9-20); Carbon Dioxide 23 mmol/L (22-30); Chloride 100 mmol/L (98-107); Glucose 106 mg/dL (74-99); Non-African American GFR(MDRD) >60 (>60 ml/min/1.73 sqM); Potassium 3.5 mmol/L (3.5-5.1); Sodium 131 mmol/L (137-145)
--- NOTE | 2017-04-01 09:12 | P.PN ---
Subjective Principal diagnosis: Status post incision and drainage right shoulder This is a 87 year-old male post incision and drainage right shoulder by Dr. Gonzalez. This is post-op day 2. The patient did undergo a open rotator cuff repair of the right shoulder on 03/07/[address] Loredo originally. The patient' s postoperative course was uneventful up until last week where he developed redness and warmth to the right shoulder and the patient was started on on . The patient presented to the emergency department due to fevers and not feeling well. The patient was evaluated at the bedside today. The patient denies nausea, vomiting, abdominal pain, and chest pain this morning. The patient appears to be more comfortable today. He states his pain is controlled at this time. Objective - Vital Signs Vital signs: Vital Signs Temp 97.7 F 04/01/17 07:25 Pulse 76 04/01/17 07:25 Resp 18 04/01/17 07:25 BP 102/61 04/01/17 07:25 Pulse Ox 94 L 04/01/17 07:25 Intake & Output 03/31/17 04/01/17 04/01/17 18:59 06:59 18:59 Intake Total 1050 1930 Output Total 600 1800 Balance 450 130 Weight 81 kg Intake: Intake, IV Titration 750 750 Amount Sodium Chloride 0.9% 1, 500 000 ml @ 100 mls/hr IV . Q10H [facility] Rx#:[id number] Vancomycin 1,500 mg In 250 750 Sodium Chloride 0.9% 250 ml @ 125 mls/hr IVPB Q24H [facility] Rx#:[id number] Oral 300 1180 Output: Urine 600 1800 Other: Voiding Method Urinal Urinal # Voids 6 - Exam The patient is alert and orientated x3. He appears to be in no acute distress. Incision is improved, less redness and swelling present. There was a large amount of serous drainage on the old dressing. No packing is present. The patient has normal range of motion of the right elbow, wrist, and hand. Limited range of motion to the right shoulder due to recent surgery. Sensation and circulatory status is intact. - Labs CBC & Chem 7: 03/30/17 07:14 04/01/17 07:44 Labs: Abnormal Lab Results - Last 24 Hours (Table) 03/31/17 03/31/17 03/31/17 Range/Units 09:27 21:17 21:17 ESR 28 H (0-15) mm/hr Sodium 129 L (137-145) mmol/L Carbon Dioxide 18 L (22-30) mmol/L Glucose 153 H (74-99) mg/dL Calcium 8.1 L (8.4-10.2) mg/dL C-Reactive Protein 186.9 H (<10.0) mg/L Prealbumin 6 L (18-36) mg/dL 04/01/17 Range/Units 07:44 ESR (0-15) mm/hr Sodium 131 L (137-145) mmol/L Carbon Dioxide (22-30) mmol/L Glucose 106 H (74-99) mg/dL Calcium 8.0 L (8.4-10.2) mg/dL C-Reactive Protein (<10.0) mg/L Prealbumin (18-36) mg/dL Microbiology - Last 24 Hours (Table) 03/30/17 10:35 Gram Stain - Preliminary Shoulder - Right Wound Culture - Preliminary 03/30/17 10:35 Gram Stain - Preliminary Shoulder - Right Wound Culture - Preliminary Assessment and Plan (1) Status post incision and drainage Status: Acute (2) Cellulitis Status: Acute (3) Sepsis Status: Acute Plan: The clinical and operative findings were discussed with the patient. The patient is improving clinically. Wound cultures are negative after 24 hours. Blood cultures are currently negative. He'll continue on vancomycin IV. We will await further recommendations from Dr. Neumann for outpatient antibiotic therapy. Continue to monitor vital signs. Right shoulder dressing to be changed daily and PRN. We will continue to follow the patient closely and make further recommendations necessary.
[2017-04-01] MEDS: VANCOMYCIN 1,500 MG in SODIUM CHLORIDE 0.9% 250 ML IVPB SCH (10:50)
--- NOTE | 2017-04-01 12:29 | ECHOF ---
Referral Reason:CHF MEASUREMENTS -------- HEIGHT: 170.2 cm WEIGHT: 80.7 kg BP: IVSd: 1.0 cm (0.6 - 1.1) LVIDd: 4.2 cm (3.9 - 5.3) LVPWd: 0.9 cm (0.6 - 1.1) IVSs: 1.5 cm LVIDs: 2.6 cm LVPWs: 1.4 cm Ao Diam: 4.1 cm (2.0 - 3.7) AV Cusp: 1.4 cm (1.5 - 2.6) MV E Stephon: 1.31 m/s MV DecT: 404 ms MV A Stephon: 1.40 m/s MV E/A Ratio: 0.93 RAP: 15.00 mmHg RVSP: 19.92 mmHg FINDINGS -------- Sinus rhythm. This was a technically difficult study with suboptimal views. Left ventricular wall thickness is normal. Overall left ventricular systolic function is normal with, an EF between 55 - 60 %. The right ventricle is normal in size and function. The left atrial size is normal. The right atrium is normal in size. 1.5mg of Definity was utilized for enhancement of images The aortic valve is trileaflet, and appears structurally normal. No aortic stenosis or regurgitation. Mild mitral annular calcification present. There is trace mitral regurgitation. Trace tricuspid regurgitation present. The right ventricular systolic pressure, as measured by Doppler, is 19.92mmHg. The pulmonic valve is normal. The aortic root size is normal. The inferior vena cava is mildly dilated. The pericardium is normal. CONCLUSIONS -------- 1. Sinus rhythm. 2. Mild mitral annular calcification present. 3. There is trace mitral regurgitation. 4. Trace tricuspid regurgitation present. 5. The right ventricular systolic pressure, as measured by Doppler, is 19.92mmHg. 6. The pulmonic valve is normal. 7. The aortic root size is normal. 8. The inferior vena cava is mildly dilated. 9. The pericardium is normal. 10. This was a technically difficult study with suboptimal views. 11. Left ventricular wall thickness is normal. 12. Overall left ventricular systolic function is normal with, an EF between 55 - 60 %. 13. The right ventricle is normal in size and function. 14. The left atrial size is normal. 15. The right atrium is normal in size. 16. 1.5mg of Definity was utilized for enhancement of images 17. The aortic valve is trileaflet, and appears structurally normal. No aortic stenosis or regurgitation. [employer] SUPERVISOR: Jade Butler RDCS
[2017-04-01] MEDS ORDERED: Magnesium Replacement Protocol 1 EACH MISC MISCELLANE PRN ×2 (13:29→14:35)
[2017-04-01] MEDS ORDERED: Potassium Replacement Protocol 1 EACH MISC MISCELLANE PRN (13:29)
[2017-04-01] MEDS: MAGNESIUM SULFATE-D5W PMX 1 GM in DEXTROSE/WATER 1 100ML.BAG IVPB SCH ×2 (15:39→16:52)
[2017-04-01] MEDS: HYDROcodone/APAP 5-325MG 1 EACH TAB PO PRN (16:11)
--- NOTE | 2017-04-01 21:03 | P.PN ---
Subjective Principal diagnosis: Pain right shoulder Very pleasant 87-year-old male who does not appear to be his stated age presents to hospital with severe pain to his right shoulder as well as significant fevers. Approximately 3 weeks prior he underwent a right rotator cuff repair by Dr. Loredo. He was doing relatively well postoperatively. However one week ago he started to have some erythema and some swelling to the shoulder area. He was placed on oral antibiotic therapy with Bactrim. Aspiration was not successful for any purulent material. The patient then presented to the emergency center with a temperature 103 and severe pain to his right shoulder. He is not particularly the operating room where the incision and drainage to the right shoulder occur where is evidence of grossly purulent material. He is now feeling considerably better. Still has some localized pain from the surgery. Fevers have improved. Chills and right ears have resolved. Other than the pain he is doing relatively well. He is eating and having no difficulties with nausea and emesis or diarrhea. Doing considerably better today. pain is much improved. Denies fever chills or rigors today. Objective - Vital Signs Vital signs: Vital Signs Temp 98.0 F 04/01/17 15:02 Pulse 88 04/01/17 20:01 Resp 18 04/01/17 15:38 BP 101/66 04/01/17 15:02 Pulse Ox 94 L 04/01/17 15:02 Intake & Output 04/01/17 04/01/17 04/02/17 06:59 18:59 06:59 Intake Total 1930 800 Output Total 1800 3300 Balance 130 -2500 Weight 81 kg Intake: Intake, IV Titration 750 Amount Vancomycin 1,500 mg In 750 Sodium Chloride 0.9% 250 ml @ 125 mls/hr IVPB Q24H [facility] Rx#:[id number] Oral 1180 800 Output: Urine 1800 3300 Other: Voiding Method Urinal Urinal # Voids 3 - Exam Pleasant 87-year-old male who is comfortable since his surgery, much less pain and resolution of fever HEENT: Anicteric conjunctiva are pink and moist nasal mucosa grossly intact without significant lesions, there is no thrush. Denture Neck: The neck is supple without significant lymphadenopathy or thyromegaly. Lungs: Symmetrical air entry, rare expiratory wheeze, no significant bronchial sounds no dullness or egophony Heart: Regular rate and rhythm with an audible S1-S2, no S3 positive S4 There is no significant murmur click or rub, PMI was nondisplaced. Abdomen: Positive bowel sounds soft and nontender without palpable masses or organomegaly. There was no guarding or rebound. Extremities: Left upper extremity is normal. Right upper extremity shows of the surgical dressing in place and the recent incision and drainage in the shoulder. There is no significant drainage being noted. Site is still operator brandy. No axillary lymphadenopathy is noted right or left. No abnormal lymph nodes are noted. Lower extremities with some edema. Neuro: Awake alert oriented to person place and time. There are no acute new gross focal sensory motor deficits. - Labs CBC & Chem 7: 03/30/17 07:14 04/01/17 07:44 Labs: Abnormal Lab Results - Last 24 Hours (Table) 03/31/17 03/31/17 04/01/17 Range/Units 21:17 21:17 07:44 ESR 28 H (0-15) mm/hr Sodium 131 L (137-145) mmol/L Glucose 106 H (74-99) mg/dL Calcium 8.0 L (8.4-10.2) mg/dL C-Reactive Protein 186.9 H (<10.0) mg/L Prealbumin 6 L (18-36) mg/dL Microbiology - Last 24 Hours (Table) 03/30/17 10:35 Gram Stain - Final Shoulder - Right Wound Culture - Final 03/30/17 10:35 Gram Stain - Final Shoulder - Right Wound Culture - Final 03/30/17 10:35 Anaerobic Culture - Preliminary Shoulder - Right 03/30/17 10:35 Anaerobic Culture - Preliminary Shoulder - Right Laboratory Results WBC 5.2 k/uL (3.8-10.6) 03/30/17 07:14 RBC 4.21 m/uL (4.30-5.90) L 03/30/17 07:14 Hgb 12.9 gm/dL (13.0-17.5) L 03/30/17 07:14 Hct 39.6 % (39.0-53.0) 03/30/17 07:14 MCV 94.1 fL (80.0-100.0) 03/30/17 07:14 MCH 30.7 pg (25.0-35.0) 03/30/17 07:14 MCHC 32.6 g/dL (31.0-37.0) 03/30/17 07:14 RDW 13.8 % (11.5-15.5) 03/30/17 07:14 Plt Count 229 k/uL (150-450) 03/30/17 07:14 Neutrophils % 75 % 03/30/17 07:14 Lymphocytes % 12 % 03/30/17 07:14 Monocytes % 6 % 03/30/17 07:14 Eosinophils % 4 % 03/30/17 07:14 Basophils % 1 % 03/30/17 07:14 Neutrophils # 3.9 k/uL (1.3-7.7) 03/30/17 07:14 Lymphocytes # 0.6 k/uL (1.0-4.8) L 03/30/17 07:14 Monocytes # 0.3 k/uL (0-1.0) 03/30/17 07:14 Eosinophils # 0.2 k/uL (0-0.7) 03/30/17 07:14 Basophils # 0.0 k/uL (0-0.2) 03/30/17 07:14 ESR 28 mm/hr (0-15) H 03/31/17 21:17 PT 12.3 sec (9.0-12.0) H 03/28/17 20:16 INR 1.2 (<1.1) 03/28/17 20:16 APTT 26.6 sec (22.0-30.0) 03/28/17 20:16 Sodium 131 mmol/L (137-145) L 04/01/17 07:44 Potassium 3.5 mmol/L (3.5-5.1) 04/01/17 07:44 Chloride 100 mmol/L (98-107) 04/01/17 07:44 Carbon Dioxide 23 mmol/L (22-30) 04/01/17 07:44 Anion Gap 8 mmol/L 04/01/17 07:44 BUN 11 mg/dL (9-20) 04/01/17 07:44 Creatinine 0.93 mg/dL (0.66-1.25) 04/01/17 07:44 Est GFR (MDRD) Af Amer >60 (>60 ml/min/1.73 sqM) 04/01/17 07:44 Est GFR (MDRD) Non-Af >60 (>60 ml/min/1.73 sqM) 04/01/17 07:44 Glucose 106 mg/dL (74-99) H 04/01/17 07:44 Plasma Lactic Acid Raul 1.8 mmol/L (0.7-2.0) 03/29/17 00:15 Calcium 8.0 mg/dL (8.4-10.2) L 04/01/17 07:44 Magnesium 1.6 mg/dL (1.6-2.3) 04/01/17 13:45 Total Bilirubin 0.8 mg/dL (0.2-1.3) 03/28/17 20:16 AST 27 U/L (17-59) 03/28/17 20:16 ALT 32 U/L (21-72) 03/28/17 20:16 Alkaline Phosphatase 57 U/L (38-126) 03/28/17 20:16 Troponin I 0.014 ng/mL (0.000-0.034) 03/29/17 07:46 C-Reactive Protein 186.9 mg/L (<10.0) H 03/31/17 21:17 Total Protein 6.7 g/dL (6.3-8.2) 03/28/17 20:16 Albumin 3.8 g/dL (3.5-5.0) 03/28/17 20:16 Prealbumin 6 mg/dL (18-36) L 03/31/17 21:17 Urine Color Yellow 03/28/17 20:16 Urine Appearance Clear (Clear) 03/28/17 20:16 Urine pH 6.5 (5.0-8.0) 03/28/17 20:16 Ur Specific [place] 1.021 (1.001-1.035) 03/28/17 20:16 Urine Protein Trace (Negative) H 03/28/17 20:16 Urine Glucose (UA) Negative (Negative) 03/28/17 20:16 Urine Ketones Negative (Negative) 03/28/17 20:16 Urine Blood Negative (Negative) 03/28/17 20:16 Urine Nitrite Negative (Negative) 03/28/17 20:16 Urine Bilirubin Negative (Negative) 03/28/17 20:16 Urine Urobilinogen 2.0 mg/dL (<2.0) 03/28/17 20:16 Ur Leukocyte Esterase Negative (Negative) 03/28/17 20:16 Vancomycin Trough 5.2 ug/mL 03/31/17 17:28 Microbiology 03/30/17 10:35 Shoulder - Right Gram Stain - Final 03/30/17 10:35 Shoulder - Right Wound Culture - Final 03/30/17 10:35 Shoulder - Right Gram Stain - Final 03/30/17 10:35 Shoulder - Right Wound Culture - Final 03/30/17 10:35 Shoulder - Right Anaerobic Culture - Preliminary 03/30/17 10:35 Shoulder - Right Anaerobic Culture - Preliminary 03/28/17 20:16 Blood Blood Culture - Preliminary No Growth after 72 hours 03/28/17 20:16 Urine,Voided Urine Culture - Final Assessment and Plan (1) Septic arthritis of shoulder, right Narrative/Plan: Pleasant 87 year old male presents to hospital with increasing pain and swelling to his right shoulder. It is noted he had a rotator cuff repair by me 3 weeks ago. Is going well to about a week before admission. Patient was seen in the office for some erythema and swelling. Was placed on antibiotic therapy and had an aspiration attempt. Despite antibiotic therapy he markedly worsened. Because he has been admitted and has had the incision and drainage to the shoulder. He is not clinically much improved. He's had some hyponatremia likely in the basis of his significant pain and medications. He is being monitored. As far as infection cultures are pending. Is receiving antibiotic therapy with vancomycin which will give coverage for the likely pathogens. Unclear if he will receive antibiotic therapy at home or at an outpatient center. Elevated lactic acid admission is resolved. Youman is only 6 and will be protein supplementation. His CRP is markedly elevated at 186.9, and ESR is at 28. Patient is showing a marked improvement. We utilize outpatient intravenous antibiotic therapy with vancomycin. Status: Acute (2) Pain in right shoulder Status: Acute (3) Hyponatremia Status: Acute
[2017-04-02] MEDS: VANCOMYCIN 1,500 MG in SODIUM CHLORIDE 0.9% 250 ML IVPB SCH (02:51)
[2017-04-02] MEDS: TIOTROPIUM 18 MCG/PUFF INHALER INHALATION SCH (07:22)
[2017-04-02] MEDS: ALBUTEROL NEBULIZED 2.5 MG/3 ML INHALATION PRN ×2 (07:22→13:50)
[2017-04-02 07:59] VITALS: RESP 18
[2017-04-02 08:37] LABS: Anion Gap 7 mmol/L; Blood Urea Nitrogen 13 mg/dL (9-20); Calcium 8.2 mg/dL (8.4-10.2); Carbon Dioxide 28 mmol/L (22-30); Chloride 99 mmol/L (98-107); Glucose 109 mg/dL (74-99); Magnesium 1.7 mg/dL (1.6-2.3); Non-African American GFR(MDRD) >60 (>60 ml/min/1.73 sqM); Potassium 3.6 mmol/L (3.5-5.1); Sodium 134 mmol/L (137-145)
--- NOTE | 2017-04-02 08:38 | P.PN ---
Subjective Principal diagnosis: Status post incision and drainage right shoulder This is a 87 year-old male post incision and drainage right shoulder by Dr. Gonzalez. This is post-op day 3. The patient did undergo a open rotator cuff repair of the right shoulder on 03/07/[address] Loredo originally. The patient' s postoperative course was uneventful up until last week where he developed redness and warmth to the right shoulder and the patient was started on on . The patient presented to the emergency department due to fevers and not feeling well. The patient was evaluated at the bedside today. The patient denies nausea, vomiting, abdominal pain, and chest pain this morning. The patient appears to be more comfortable today. Clinically he continues to improve. He states his pain is controlled at this time. Objective - Vital Signs Vital signs: Vital Signs Temp 98.0 F 04/02/17 07:58 Pulse 87 04/02/17 07:58 Resp 18 04/02/17 07:58 BP 118/74 04/02/17 07:58 Pulse Ox 95 04/02/17 07:58 Intake & Output 04/01/17 04/02/17 04/02/17 18:59 06:59 18:59 Intake Total 800 2550 Output Total 3300 1200 Balance -2500 1350 Weight 81 kg 81 kg Intake: Intake, IV Titration 1750 Amount Magnesium Sulfate-D5w Pmx 1500 1 gm In Dextrose/Water 1 100ml.bag @ 100 mls/hr IVPB Q1H [facility] Rx#: [id number] Vancomycin 1,500 mg In 250 Sodium Chloride 0.9% 250 ml @ 125 mls/hr IVPB Q16H [facility] Rx#:[id number] Oral 800 800 Output: Urine 3300 1200 Other: Voiding Method Urinal Urinal # Voids 3 3 - Exam The patient is alert and orientated x3. He appears to be in no acute distress. Incision is improved, less redness and swelling present. There was moderate amount of purulent drainage on the old dressing. No packing is present. 2 sutures were removed and wound was re-opened today. Nursing to pack wound. The patient has normal range of motion of the right elbow, wrist, and hand. Limited range of motion to the right shoulder due to recent surgery. Sensation and circulatory status is intact. - Labs CBC & Chem 7: 03/30/17 07:14 04/01/17 07:44 Labs: Abnormal Lab Results - Last 24 Hours (Table) 04/01/17 Range/Units 07:44 Sodium 131 L (137-145) mmol/L Glucose 106 H (74-99) mg/dL Calcium 8.0 L (8.4-10.2) mg/dL Microbiology - Last 24 Hours (Table) 03/30/17 10:35 Gram Stain - Final Shoulder - Right Wound Culture - Final 03/30/17 10:35 Gram Stain - Final Shoulder - Right Wound Culture - Final 03/30/17 10:35 Anaerobic Culture - Preliminary Shoulder - Right 03/30/17 10:35 Anaerobic Culture - Preliminary Shoulder - Right Assessment and Plan (1) Status post incision and drainage Status: Acute (2) Cellulitis Status: Acute (3) Sepsis Status: Acute Plan: The clinical and operative findings were discussed with the patient. The patient is improving clinically. Wound and blood cultures are negative at this time. He'll continue on vancomycin IV on an outpatient basis per Dr. Neumann. A PICC line will need to be placed. Orders entered for PICC line placement. Continue to monitor vital signs. Right shoulder wound to be packed daily and PRN. The patient is orthopedically stable for discharge once PICC line is placed and outpatient antibiotic therapy and wound care is arranged. We will continue to follow the patient closely and make further recommendations necessary.
[2017-04-02] MEDS: CYANOCOBALAMIN 500 MCG TAB PO SCH (08:57)
[2017-04-02] MEDS: FUROSEMIDE 10 MG/ML 4 ML VIAL IV SCH (08:57)
[2017-04-02] MEDS: HEPARIN SODIUM,PORCINE 5,000 UNIT/ML 1 ML VIAL SQ SCH ×3 (08:58→17:06)
[2017-04-02] MEDS: PANTOPRAZOLE 40 MG TABLET PO SCH (08:59)
[2017-04-02] MEDS: CHOLECALCIFEROL 1,000 UNIT TAB PO SCH (08:59)
[2017-04-02] MEDS: TAMSULOSIN 0.4 MG CAP.ER.24H PO SCH (08:59)
[2017-04-02] MEDS: LEVOTHYROXINE 125 MCG TAB PO SCH (08:59)
[2017-04-02] MEDS: guaiFENesin-DM 600/30MG 1 EACH TAB.ER.12H PO SCH (08:59)
[2017-04-02] MEDS: ASPIRIN 81 MG CHEW PO SCH ×2 (08:59→09:04)
--- NOTE | 2017-04-02 09:47 | P.PN ---
Subjective Date of service 04/01/2017. Progress note being dictated for Dr. Thornton. Interval history: This is a 87-year-old gentleman admitted with sepsis, right shoulder abscess, status post I&D and multiple other medical issues. Developed pulmonary edema secondary to IV fluid hydration. IV fluids discontinued yesterday and Lasix initiated with breathing much improved today. Denies shortness of breath. Echo suboptimal, reporting normal LV function, EF 50-60%. Maintained on vancomycin. Preliminary wound cultures pending, blood cultures currently negative. Limited range of motion of the right shoulder. Pain controlled, improved. Afebrile. Magnesium 1.6.CRP 186.9.Na 131. Objective - Vital Signs Vital signs: Vital Signs Temp 98.0 F 04/01/17 15:02 Pulse 80 04/01/17 15:50 Resp 18 04/01/17 15:38 BP 101/66 04/01/17 15:02 Pulse Ox 94 L 04/01/17 15:02 Intake & Output 03/31/17 04/01/17 04/01/17 18:59 06:59 18:59 Intake Total 1050 1930 800 Output Total 600 1800 3300 Balance 450 130 -2500 Weight 81 kg 81 kg Intake: Intake, IV Titration 750 750 Amount Sodium Chloride 0.9% 1, 500 000 ml @ 100 mls/hr IV . Q10H [facility] Rx#:[id number] Vancomycin 1,500 mg In 250 750 Sodium Chloride 0.9% 250 ml @ 125 mls/hr IVPB Q24H [facility] Rx#:[id number] Oral 300 1180 800 Output: Urine 600 1800 3300 Other: Voiding Method Urinal Urinal Urinal # Voids 6 3 - Exam PHYSICAL EXAM: VITAL SIGNS: [As above] GENERAL: [Sitting up in bed, no acute distress] HEENT: [Pupils equal conjunctiva normal. No conjunctival pallor] NECK: [Supple, no JVD] RESPIRATORY EFFORT:[normal] LUNGS: [Clear to auscultation ,no wheezing rhonchi or crackles] CARDIOVASCULAR[regular S1 and S2, no murmurs rubs or gallops, no edema] GI: [Abdomen soft, nondistended, nontender, positive bowel sounds.] PSYCH: [Alert and oriented -3, mood and affect normal.] SKIN: Right shoulder dressing clean dry and intact NEURO: [No focal deficits - Labs CBC & Chem 7: 03/30/17 07:14 04/02/17 07:46 Labs: Abnormal Lab Results - Last 24 Hours (Table) 03/31/17 03/31/17 04/01/17 Range/Units 21:17 21:17 07:44 ESR 28 H (0-15) mm/hr Sodium 131 L (137-145) mmol/L Glucose 106 H (74-99) mg/dL Calcium 8.0 L (8.4-10.2) mg/dL C-Reactive Protein 186.9 H (<10.0) mg/L Prealbumin 6 L (18-36) mg/dL Microbiology - Last 24 Hours (Table) 03/30/17 10:35 Gram Stain - Final Shoulder - Right Wound Culture - Final 03/30/17 10:35 Gram Stain - Final Shoulder - Right Wound Culture - Final 03/30/17 10:35 Anaerobic Culture - Preliminary Shoulder - Right 03/30/17 10:35 Anaerobic Culture - Preliminary Shoulder - Right Assessment and Plan Plan: 1. [Sepsis secondary to right shoulder abscess]. 2. [Acute hypoxic respiratory failure secondary to pulmonary edema from fluid overload, responded well to Lasix]. EF normal. 3. [Diabetic acidosis secondary to severe sepsis, resolved]. 4. Hypervolemic hyponatremia secondary to pulmonary edema, fluid overload, improved with Lasix 5. [Tachycardia secondary to hypoxemia, resolved]. 6. [COPD without acute exacerbation]. 7. [Hypothyroidism]. Plan: Continue on current medication regime , vancomycin, monitoring and symptomatic treatment. Follow cultures closely, antibiotics as per infectious disease. Wound care as per orthopedics. Continue on Lasix IV push today then DC tomorrow, patient has normal EF with no respiratory difficulties at this time. Magnesium 1.6, replacement protocol ordered .PICC line ordered .close monitoring of electrolytes with repeat labs ordered for a.m. Discharge planning in progress pending final culture results. The impression and plan of care has been dictated as directed. : I performed a H&P examination of this patient and discussed the same with the dictator. I agree with the dictator's note. Any additional findings/opinions/ etc. will be noted.
[2017-04-02] MEDS ORDERED: LIDOCAINE 2% INJ 20 MG/ML SQ ONE (09:55)
[2017-04-02 15:13] VITALS: BP 101/67; PULSE 76; TEMP 98.1
--- NOTE | 2017-04-02 18:13 | P.DS ---
Providers Date of admission: 03/29/17 00:58 Expected date of discharge: 04/02/17 Attending physician: Michael Thornton. Consults: 03/31/17 10:07 Consult Physician Routine Consulting Provider: Arjun Neumann Consult Reason/Comments: deep infection right shoulder, s/p rotator cuff repair. Antibiotic managem Do you want consulting provider notified?: Yes Dr. Loredo Orth[facility] Primary care physician: Albertina Evans MD Hospital Course: Final Diagnoses 1. [Sepsis secondary to right shoulder abscess]. 2. [Acute hypoxic respiratory failure secondary to pulmonary edema from fluid overload, responded well to Lasix]. Acute CHF, diastolic dysfunction EF normal. 3. [Diabetic acidosis secondary to severe sepsis, resolved]. 4. Hypovolemic hyponatremia,improved. 5. [Tachycardia secondary to hypoxemia, resolved]. 6. [COPD without acute exacerbation]. 7. [Hypothyroidism]. Hospital course:This is a 87-year-old gentleman admitted with sepsis, right shoulder abscess, status post I&D and multiple other medical issues. received IV fluid hydration, sodium up to 134.Developed pulmonary edema secondary to IV fluid hydration. Received Lasix with significant clinical improvement. Echo suboptimal, reporting normal LV function, EF 50-60%. Maintained on vancomycin as per infectious disease. PICC line placed. Wound and blood cultures currently negative.CRP 186.9. Patient is being discharged home in a stable condition with guarded prognosis. Microbiology 03/28/17 20:16 Blood Blood Culture - Preliminary No Growth after 96 hours 03/30/17 10:35 Shoulder - Right Gram Stain - Final 03/30/17 10:35 Shoulder - Right Wound Culture - Final 03/30/17 10:35 Shoulder - Right Gram Stain - Final 03/30/17 10:35 Shoulder - Right Wound Culture - Final 03/30/17 10:35 Shoulder - Right Anaerobic Culture - Preliminary 03/30/17 10:35 Shoulder - Right Anaerobic Culture - Preliminary 03/28/17 20:16 Urine,Voided Urine Culture - Final The impression and plan of care has been dictated as directed. : I performed a H&P examination of this patient and discussed the same with the dictator. I agree with the dictator's note. Any additional findings/opinions/ etc. will be noted. Patient Condition at Discharge: Stable Plan - Discharge Summary New Discharge Prescriptions: HYDROcodone/APAP 5-325MG [Scurry 5-325] 1 - 2 each PO Q4-6H PRN #60 tab PRN Reason: Pain Vancomycin 1,500 mg IVPB Q24HR #30 bag Discharge Medication List Aspirin 81 mg PO DAILY 05/24/16 [History] Levothyroxine Sodium [Synthroid] 125 mcg PO DAILY 05/24/16 [History] Tamsulosin [Flomax] 0.4 mg PO BID 05/24/16 [History] Tiotropium Tangent [Spiriva] 1 cap INHALATION RT-DAILY 05/24/16 [History] Biotin 5 mg PO DAILY 09/09/16 [History] Cyanocobalamin [Vitamin B-12] 1,000 mcg PO DAILY 09/09/16 [History] Albuterol Sulfate [Proair Hfa] 1 - 2 puff INHALATION RT-Q6H PRN 03/05/17 [ History] Cholecalciferol [Vitamin D3] 1,000 unit PO DAILY 03/28/17 [History] Esomeprazole Magnesium [NexIUM] 40 mg PO DAILY 03/28/17 [History] guaiFENesin-DM 600/30MG [Mucinex Dm] 1 tab PO Q48H 03/28/17 [History] Vancomycin 1,500 mg IVPB Q24HR #30 bag 03/31/17 [Rx] HYDROcodone/APAP 5-325MG [Scurry 5-325] 1 - 2 each PO Q4-6H PRN #60 tab 04/02/17 [Rx] Follow up Appointment(s)/Referral(s): Fredrick Loredo DO [Doctor of Osteopathic Medicine] - 04/09/17 8:30 am Albertina Evans MD [Primary Care Provider] - 04/07/17 11:30 am Ambulatory/Diagnostic Orders: Basic Metabolic Panel [LAB.AMB] Location: Determined By Patient Complete Blood Count w/diff [LAB.AMB] Location: Determined By Patient Miscellaneous Lab Order [LAB.AMB] Location: Determined By Patient Patient Instructions/Handouts: Hydrocodone/Acetaminophen (By mouth), Vancomycin (By injection), Abscess (GEN) Activity/Diet/Wound Care/Special Instructions: IV antibiotics daily at [facility] starting April 03 at 2:00pm. Daily wound packing with plain iodoform to right shoulder wound Labwork weekly x 6 weeks. (CBC/BMP/Vanco level) [facility]-[phone] Ensure Plus 3 times a day between meals and daily at bedtime SABRA/Compression stockings as previously advised Discharge Disposition: HOME WITH HOME HEALTH SERVICES
[2017-04-03] MEDS ORDERED: VANCOMYCIN TROUGH DUE 1 EACH MISC MISCELLANE ONE (09:00)
== END 2017-04-02 17:15 | disposition home health service (06) | DRG 856 ==
LOC: EC 20:03 → 5MS5E 03-29 00:58
PROVIDERS: ADMIT Hospitalist; ATTEND Hospitalist
PROC: 0JBD0ZZ Excision of Right Upper Arm Subcutaneous Tissue and Fascia, Open Approach (ICD-10-PCS; principal; 2017-03-30 10:00)
PROC: 02HV33Z Insertion of Infusion Device into Superior Vena Cava, Percutaneous Approach (ICD-10-PCS; 2017-04-02 09:45)
DX: T81.4XXA Infection following a procedure, initial encounter (principal); A41.9 Sepsis, unspecified organism; J96.01 Acute respiratory failure with hypoxia; R65.20 Severe sepsis without septic shock; I50.31 Acute diastolic (congestive) heart failure; E87.2 Acidosis; E87.1 Hypo-osmolality and hyponatremia; L02.413 Cutaneous abscess of right upper limb; E11.9 Type 2 diabetes mellitus without complications; L03.113 Cellulitis of right upper limb; E87.79 Other fluid overload; M25.511 Pain in right shoulder; E86.1 Hypovolemia; T40.2X5A Adverse effect of other opioids, initial encounter; R00.0 Tachycardia, unspecified; H91.90 Unspecified hearing loss, unspecified ear; E03.9 Hypothyroidism, unspecified; R53.83 Other fatigue; I45.10 Unspecified right bundle-branch block; J44.9 Chronic obstructive pulmonary disease, unspecified; K21.9 Gastro-esophageal reflux disease without esophagitis; Z87.891 Personal history of nicotine dependence; Z85.828 Personal history of other malignant neoplasm of skin; Z79.82 Long term (current) use of aspirin; Z80.8 Family history of malignant neoplasm of other organs or systems; Z82.49 Family history of ischemic heart disease and other diseases of the circulatory system; Z79.899 Other long term (current) drug therapy; Z98.42 Cataract extraction status, left eye; Z98.41 Cataract extraction status, right eye; Z80.42 Family history of malignant neoplasm of prostate; Z90.49 Acquired absence of other specified parts of digestive tract; Z96.652 Presence of left artificial knee joint; Z87.448 Personal history of other diseases of urinary system; Y83.8 Other surgical procedures as the cause of abnormal reaction of the patient, or of later complication, without mention of misadventure at the time of the procedure
CPT/HCPCS: 36415; 36569; 71010; 71020; 76937; 77001; 80048; 80053; 80202; 81003; 83605; 83735; 84134; 84484; 85025; 85610; 85652; 85730; 86140; 87040; 87070; 87075; 87086; 87205; 93005; 93306; 94640; 94760; 96361; 96365; 96366; 96375; 99285

== ENCOUNTER → 2017-05-02 | Outpatient (CLI) | payer MEDICARE ==
[2017-05-02 18:36] LABS: Blood Urea Nitrogen 14 mg/dL (9-20); Non-African American GFR(MDRD) >60 (>60 ml/min/1.73 sqM)
--- NOTE | 2017-05-03 08:26 | CT ---
EXAMINATION TYPE: CT shoulder RT w con DATE OF EXAM: 05/02/2017 COMPARISON: NONE HISTORY: Patient complains of infection in shoulder post surgical rotator cuff repair. CT DLP: 323.5 mGycm Contrast:100 ml Omni [address] of the right shoulder with reconstruction imaging. TECHNIQUE: Contrast-enhanced CT of the right shoulder was performed with bone and soft tissue window settings submitted in the axial coronal and sagittal planes. 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 There has been acromioplasty with small surgical defect noted. There is surrounding fluid at the acro mioplasty site as well as about the humeral head. Infected fluid is difficult to exclude. I do not se e bony destructive process to suggest osteomyelitis at this time. Bony fragments are likely postopera tive in nature. No evidence for for acute fracture. IMPRESSION: 1. Fluid and as well as complex fluid are noted at the acromioplasty site and surrounding the humeral head. Most of this fluid likely reflects postoperative seroma with blood byproducts. Infected colle ction is difficult to exclude. 2. I do not see a definite signs of osteomyelitis at this time however if symptoms do persist conside r a WBC scan or MRI of the right shoulder. Bony fragmentation and recent surgical resection of the ch romium noted.
== END | disposition home or self-care (01) ==
LOC: RADCTMAIN 17:41
PROVIDERS: ATTEND Surgery
DX: M86.411 Chronic osteomyelitis with draining sinus, right shoulder (principal)
CPT/HCPCS: 82565; 84520; 36415; 73201; Q9967

== ENCOUNTER 2019-01-06 04:31 | Emergency (ER) | payer MEDICARE ==
--- NOTE | 2019-01-06 04:35 | ED ---
Fall HPI <Viridiana Brock - Last Filed: 01/06/19 07:20> <VirgilioHector barrow Juliocesar - Last Filed: 01/06/19 09:01> - General Stated Complaint: Fall Time Seen by Provider: 01/06/19 04:35 - History of Present Illness Initial Comments: She is a pleasant 88-year-old male was brought to the ED today via EMS for evaluation of right lower back pain. Patient reports that on Friday was walking in from his garage carrying packages when he lost his balance falling backwards against the car he struck his back against the car. He does believe he lost consciousness but was able to stand and ambulate independently. Patient reports that since Friday he has had pain in his right lower back. Patient reports that during the night last night turned funny in bed and since that time his had severe pain in his right flank Him from sleeping and prompted him to come to the ER for evaluation. (Viridiana Brock) - Related Data Home Medications Medication Instructions Recorded Confirmed Aspirin 81 mg PO HS 05/24/16 01/06/19 Levothyroxine Sodium [Synthroid] 125 mcg PO DAILY 05/24/16 01/06/19 Tamsulosin [Flomax] 0.5 mg PO HS 05/24/16 01/06/19 Tiotropium [place] [Spiriva] 1 cap INHALATION RT-DAILY 05/24/16 01/06/19 Biotin 5 mg PO HS 09/09/16 01/06/19 Albuterol Sulfate [Proair Hfa] 1 - 2 puff INHALATION RT-Q6H PRN 03/05/17 Cholecalciferol [Vitamin D3] 1,000 unit PO DAILY 03/28/17 01/06/19 guaiFENesin-DM 600/30MG [Mucinex 1 tab PO HS 03/28/17 01/06/19 Dm] Multivitamins, Thera [Multivitamin 1 tab PO DAILY 01/06/19 01/06/19 (formulary)] Omeprazole 40 mg PO HS 01/06/19 01/06/19 diphenhydrAMINE [Benadryl] 25 mg PO QID PRN 01/06/19 01/06/19 Previous Rx's Medication Instructions Recorded HYDROcodone/APAP 5-325MG [[place] 1 tab PO DAILY PRN #5 tab 01/06/19 5-325] methylPREDNISolone Dose Pack 4 mg PO DIRECTED #21 package 01/06/19 [Medrol Dose Pack] Allergies Allergy/AdvReac Type Severity Reaction Status Date / Time No Known Allergies Allergy Verified 01/06/19 07:09 Review of Systems ROS Other: All systems not noted in ROS Statement are negative. <Viridiana Brock - Last Filed: 01/06/19 07:20> ROS Other: All systems not noted in ROS Statement are negative. <Hector Soto - Last Filed: 01/06/19 09:01> ROS Statement: Those systems with pertinent positive or pertinent negative responses have been documented in the HPI. Past Medical History Past Medical History: Cancer, COPD, GERD/Reflux, Hearing Disorder / Deafness, Musculoskeletal Disorder, Thyroid Disorder Additional Past Medical History / Comment(s): polyps removed in bladder. 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 Rotator Cuff Past Anesthesia/Blood Transfusion Reactions: No Reported Reaction Smoking Status: Former smoker - Past Family History Father History Unknown: Yes Family Medical History: Cancer Additional Family Medical History / Comment(s): prostate Mother History Unknown: Yes Family Medical History: Coronary Artery Disease (CAD) Brother(s) Family Medical History: Cancer Additional Family Medical History / Comment(s): prostate, BONE CANCER <Viridiana Brock P - Last Filed: 01/06/19 07:20> General Exam <Viridiana Brock P - Last Filed: 01/06/19 07:20> <Hector Soto - Last Filed: 01/06/19 09:01> - General Exam Comments Initial Comments: Physical Exam GENERAL: Patient is well-developed and well-nourished. Patient is nontoxic and well- hydrated and is in no distress. HENT: Normocephalic, Atraumatic. EYES: PERRL, EOMI PULMONARY: Unlabored respirations. No audible rales rhonchi or wheezing was noted. CARDIOVASCULAR: There is a regular rate and rhythm without any murmurs gallops or rubs. ABDOMEN: Soft and nontender with normal bowel sounds. SKIN: Skin is clear with no lesions or rashes and otherwise unremarkable. : Deferred NEUROLOGIC: Patient is alert and oriented x3. Moving all extremities spontaneously MUSCULOSKELETAL: Normal extremities with adequate strength and full range of motion. No lower extremity swelling or edema. No calf tenderness. PSYCHIATRIC: Normal psychiatric evaluation. Limitations: no limitations (Viridiana Brock) Vital Signs 01/06/19 04:32 Temperature 98.3 F Pulse Rate 70 Respiratory 16 Rate Blood Pressure 140/96 O2 Sat by Pulse 98 Oximetry Medical Decision Making - Lab Data Result diagrams: 01/06/19 06:05 01/06/19 06:05 - EKG Data -: EKG Interpreted by Ma <Viridiana Brock - Last Filed: 01/06/19 07:20> - Lab Data Result diagrams: 01/06/19 06:05 01/06/19 06:05 <Hector Soto - Last Filed: 01/06/19 09:01> - Medical Decision Making Patient was seen and evaluated history is obtained from patient and signed patient had a mechanical fall backwards striking his head and back he did have a loss of consciousness experiencing low back pain Labs and imaging were ordered Morphine was ordered for pain Labs with no significant abnormalities EKG is nonischemic Chest x-ray and pelvis x-ray with no acute findings Patient care was signed out to Dr. Soto at shift change patient is pending CT images (Viridiana Brock) Patient with fall which occurred 4 days ago with worsening back pain. Patient' s care was signed out awaiting imaging. Imaging reviewed, the patient had full trauma workup including CT head, cervical spine, chest and pelvis with lumbar and thoracic spinal reconstitution. Traumatic workup is negative, there is no acute bony abnormality, no traumatic injury in the abdomen chest or pelvis. Patient feeling better on reevaluation. Will trial course of steroids, [place] daily at bedtime as needed for pain. Follow-up with primary care physician, also given orthopedic follow-up if symptoms persist. (Hector Soto) - Lab Data Lab Results 01/06/19 01/06/19 01/06/19 Range/Units 06:05 06:05 06:05 WBC 6.4 (3.8-10.6) k/uL RBC 4.82 (4.30-5.90) m/uL Hgb 14.3 (13.0-17.5) gm/dL Hct 43.2 (39.0-53.0) % MCV 89.7 (80.0-100.0) fL MCH 29.6 (25.0-35.0) pg MCHC 33.0 (31.0-37.0) g/dL RDW 14.7 (11.5-15.5) % Plt Count 244 (150-450) k/uL Neutrophils % 65 % Lymphocytes % 20 % Monocytes % 8 % Eosinophils % 5 % Basophils % 1 % Neutrophils # 4.1 (1.3-7.7) k/uL Lymphocytes # 1.2 (1.0-4.8) k/uL Monocytes # 0.5 (0-1.0) k/uL Eosinophils # 0.3 (0-0.7) k/uL Basophils # 0.0 (0-0.2) k/uL PT (9.0-12.0) sec INR (<1.2) APTT (22.0-30.0) sec Sodium 136 L (137-145) mmol/L Potassium 5.0 (3.5-5.1) mmol/L Chloride 100 (98-107) mmol/L Carbon Dioxide 26 (22-30) mmol/L Anion Gap 10 mmol/L BUN 9 (9-20) mg/dL Creatinine 0.86 (0.66-1.25) mg/dL Est GFR (CKD-EPI)AfAm >90 (>60 ml/min/1.73 sqM) Est GFR (CKD-EPI)NonAf 79 (>60 ml/min/1.73 sqM) Glucose 119 H (74-99) mg/dL Calcium 9.3 (8.4-10.2) mg/dL Total Bilirubin 0.6 (0.2-1.3) mg/dL AST 29 (17-59) U/L ALT 25 (21-72) U/L Alkaline Phosphatase 56 (38-126) U/L Total Creatine Kinase 104 (55-170) U/L CK-MB (CK-2) 0.7 (0.0-2.4) ng/mL CK-MB (CK-2) Rel Index 0.7 Troponin I <0.012 (0.000-0.034) ng/mL Total Protein 7.3 (6.3-8.2) g/dL Albumin 4.3 (3.5-5.0) g/dL Urine Color Urine Appearance (Clear) Urine pH (5.0-8.0) Ur Specific [place] (1.001-1.035) Urine Protein (Negative) Urine Glucose (UA) (Negative) Urine Ketones (Negative) Urine Blood (Negative) Urine Nitrite (Negative) Urine Bilirubin (Negative) Urine Urobilinogen (<2.0) mg/dL Ur Leukocyte Esterase (Negative) 01/06/19 01/06/19 Range/Units 06:05 07:56 WBC (3.8-10.6) k/uL RBC (4.30-5.90) m/uL Hgb (13.0-17.5) gm/dL Hct (39.0-53.0) % MCV (80.0-100.0) fL MCH (25.0-35.0) pg MCHC (31.0-37.0) g/dL RDW (11.5-15.5) % Plt Count (150-450) k/uL Neutrophils % % Lymphocytes % % Monocytes % % Eosinophils % % Basophils % % Neutrophils # (1.3-7.7) k/uL Lymphocytes # (1.0-4.8) k/uL Monocytes # (0-1.0) k/uL Eosinophils # (0-0.7) k/uL Basophils # (0-0.2) k/uL PT 10.9 (9.0-12.0) sec INR 1.0 (<1.2) APTT 24.0 (22.0-30.0) sec Sodium (137-145) mmol/L Potassium (3.5-5.1) mmol/L Chloride (98-107) mmol/L Carbon Dioxide (22-30) mmol/L Anion Gap mmol/L BUN (9-20) mg/dL Creatinine (0.66-1.25) mg/dL Est GFR (CKD-EPI)AfAm (>60 ml/min/1.73 sqM) Est GFR (CKD-EPI)NonAf (>60 ml/min/1.73 sqM) Glucose (74-99) mg/dL Calcium (8.4-10.2) mg/dL Total Bilirubin (0.2-1.3) mg/dL AST (17-59) U/L ALT (21-72) U/L Alkaline Phosphatase (38-126) U/L Total Creatine Kinase (55-170) U/L CK-MB (CK-2) (0.0-2.4) ng/mL CK-MB (CK-2) Rel Index Troponin I (0.000-0.034) ng/mL Total Protein (6.3-8.2) g/dL Albumin (3.5-5.0) g/dL Urine Color Light Yellow Urine Appearance Clear (Clear) Urine pH 7.0 (5.0-8.0) Ur Specific [place] 1.020 (1.001-1.035) Urine Protein Negative (Negative) Urine Glucose (UA) Negative (Negative) Urine Ketones Negative (Negative) Urine Blood Negative (Negative) Urine Nitrite Negative (Negative) Urine Bilirubin Negative (Negative) Urine Urobilinogen <2.0 (<2.0) mg/dL Ur Leukocyte Esterase Negative (Negative) - EKG Data EKG Comments: EKG obtained at 6:53 AM, rate is 62 rhythm is sinus there is noted to be a second-degree AV block with very well AL intervals. There is no acute ST elevations or depressions no evidence of acute ischemia or infarction. (Viridiana Brock) Disposition <Viridiana Brock - Last Filed: 01/06/19 07:20> Is patient prescribed a controlled substance at d/c from ED?: Yes When asked, does pt state using other controlled substances?: No If prescribed controlled substance>3 days was MAPS reviewed?: Prescribed <3 Days If opioid is for acute pain is fill amount 7 days or less?: Yes If Rx opioid, was Start Talking consent form obtained?: Yes Time of Disposition: 08:59 <Hector Soto - Last Filed: 01/06/19 09:01> Clinical Impression: Mechanical back pain, Strain of lumbar region Disposition: HOME SELF-CARE Condition: Fair Instructions (If sedation given, give patient instructions): Acute Low Back Pain (ED) Prescriptions: HYDROcodone/APAP 5-325MG [[place] 5-325] 1 tab PO DAILY PRN #5 tab PRN Reason: Pain methylPREDNISolone Dose Pack [Medrol Dose Pack] 4 mg PO DIRECTED #21 package Referrals: None,Stated [REFERRING] - 1-2 days Albertina Evans MD [Primary Care Provider] - 1-2 days Jen Gonzalez DO [Doctor of Osteopathic Medicine] - 1-2 days
[2019-01-06 04:37] VITALS: PULSE 70
[2019-01-06 06:17] LABS: Basophils % (A) 1 %; Eosinophils # (A) 0.3 k/uL (0-0.7); Eosinophils % (A) 5 %; HCT 43.2 % (39.0-53.0); HGB 14.3 gm/dL (13.0-17.5); Lymphocytes # (A) 1.2 k/uL (1.0-4.8); Lymphocytes % (A) 20 %; MCH 29.6 pg (25.0-35.0); MCV 89.7 fL (80.0-100.0); Monocytes # (A) 0.5 k/uL (0-1.0); Monocytes % (A) 8 %; Neutrophils # (A) 4.1 k/uL (1.3-7.7); Neutrophils % (A) 65 %; Platelet Count 244 k/uL (150-450); RBC 4.82 m/uL (4.30-5.90); RDW 14.7 % (11.5-15.5); WBC 6.4 k/uL (3.8-10.6)
[2019-01-06 06:27] LABS: Prothrombin Time 10.9 sec (9.0-12.0)
[2019-01-06 06:29] LABS: Albumin 4.3 g/dL (3.5-5.0); Anion Gap 10 mmol/L; Blood Urea Nitrogen 9 mg/dL (9-20); Calcium 9.3 mg/dL (8.4-10.2); Carbon Dioxide 26 mmol/L (22-30); Chloride 100 mmol/L (98-107); Glucose 119 mg/dL (74-99); Sodium 136 mmol/L (137-145); Total Bilirubin 0.6 mg/dL (0.2-1.3); Total Protein 7.3 g/dL (6.3-8.2)
[2019-01-06 06:31] LABS: ALT 25 U/L (21-72); AST 29 U/L (17-59); Alkaline Phosphatase 56 U/L (38-126)
--- NOTE | 2019-01-06 06:34 | XR ---
INDICATION: Trauma. COMPARISON: None. FINDINGS: Portable AP view of the pelvis is provided. The sacroiliac joints, hip joints, and pubic symphysis are normally aligned. There is no evidence of acute fracture. There are degenerative changes of the visualized lower lumbar spine. IMPRESSION: No fracture or subluxation.
[2019-01-06 06:37] LABS: Creatine Kinase 104 U/L (55-170)
--- NOTE | 2019-01-06 06:37 | XR ---
INDICATION: Trauma COMPARISON: CXR 03/31/17 FINDINGS: Single frontal view of the chest is provided. There are mild right basilar opacities. The lungs are otherwise clear. There is no pleural effusion or pneumothorax. Heart size and pulmonary vascularity are normal. There are no acute osseous findings. IMPRESSION: Mild right basilar opacities which could represent atelectasis or infiltrate.
[2019-01-06 06:50] LABS: Creatine Kinase MB 0.7 ng/mL (0.0-2.4); Troponin I <0.012 ng/mL (0.000-0.034)
[2019-01-06] MEDS ORDERED: MORPHINE SULFATE 4 MG/ML SYRINGE IVP STA (07:00)
--- NOTE | 2019-01-06 07:51 | CT ---
CT CHEST With Contrast CT ABDOMEN + PELVIS With Contrast CT THORACIC/LUMBAR SPINE (RECONS) INDICATION: Trauma TECHNIQUE: CT acquisition is performed through the chest, abdomen, and pelvis following the administration of IV contrast. Sagittal and coronal reformatted images are provided. In addition, reconstructed images of the thoracic and lumbar spine are provided. DOSE INFORMATION: CTDIvol 7.9 mGy; DLP 590.9 mGy-cm. This CT exam was performed using one or more of the following dose reduction techniques: automated exposure control, adjustment of the mA and/or kV according to patient size, and/or use of iterative reconstruction technique. COMPARISON: None. FINDINGS: Chest: The thoracic aorta and main pulmonary artery are normal in caliber. There is mild cardiomegaly with coronary artery atherosclerosis. There is no pericardial effusion. There is no adenopathy by CT size criteria. There are dependent subsegmental atelectatic changes in the bilateral lower lobes. The lungs are otherwise clear. There is no pleural effusion or pneumothorax. There are no acute osseous findings. Abdomen + Pelvis: The liver, gallbladder, pancreas, and adrenal glands are unremarkable. There are calcified splenic granulomas. The kidneys enhance symmetrically. There are left kidney cysts, the largest in the lower pole measuring 11.5 cm in maximum diameter. There is aortoiliac atherosclerosis without aneurysm. There is no free fluid or free air. There is no evidence of bowel or bladder injury. Scattered colonic diverticula are noted. The prostate is unremarkable. There is evidence of prior bilateral inguinal hernia repair with small residual fat-containing inguinal hernias. There are no acute osseous findings. Thoracolumbar Spine: There is no evidence of acute fracture or subluxation. Vertebral body height and alignment are maintained. There is multilevel degenerative disc disease, moderate at L4-L5 and L5-S1. There is facet arthropathy in the lower lumbar spine. The sacroiliac joints are normally aligned. IMPRESSION: 1. No CT evidence of acute traumatic injury in the chest, abdomen, pelvis, or thoracolumbar spine.
--- NOTE | 2019-01-06 07:51 | CT ---
CT HEAD Without Contrast INDICATION: Trauma TECHNIQUE: CT acquisition is performed through the brain. Sagittal and coronal reformatted images are provided. No IV contrast is administered. DOSE INFORMATION: CTDIvol 45.2 mGy; DLP 1008 mGy-cm. This CT exam was performed using one or more of the following dose reduction techniques: automated exposure control, adjustment of the mA and/or kV according to patient size, and/or use of iterative reconstruction technique. COMPARISON: CT head 05/24/16. FINDINGS: The calvarium is intact. The visualized paranasal sinuses and mastoid air cells are clear. There is no evidence of acute intracranial hemorrhage or abnormal extra- axial fluid collection. There is no mass effect or midline shift. There is generalized parenchymal volume loss with symmetric prominence of the sulci, ventricles, and basal cisterns. 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 Patchy hypoattenuation in the cerebral white matter is compatible with chronic small vessel ischemic disease. The santoyo-white matter differentiation is preserved. IMPRESSION: 1. No CT evidence of acute intracranial process. CT C SPINE INDICATION: Trauma TECHNIQUE: CT acquisition is performed through the cervical spine. Sagittal and coronal reformatted images are provided. No IV contrast is administered. DOSE INFORMATION: CTDIvol 10.6 mGy; DLP 288.7 mGy-cm. This CT exam was performed using one or more of the following dose reduction techniques: automated exposure control, adjustment of the mA and/or kV according to patient size, and/or use of iterative reconstruction technique. COMPARISON: None. FINDINGS: There is straightening of the cervical spine. Vertebral body height and alignment are maintained. Craniocervical and atlantoaxial relationships are normal. There is no evidence of acute fracture or subluxation. There are degenerative changes at the craniocervical junction. There is mild to moderate multilevel degenerative disc disease. There is multilevel facet arthropathy and uncovertebral joint degeneration. There is no prevertebral soft tissue swelling. IMPRESSION: 1. Cervical spondylosis. No acute osseous findings.
[2019-01-06 08:09] LABS: Appearance,Urine Clear (Clear); Bilirubin,Urine Negative (Negative); Blood,Urine Negative (Negative); Color,Urine Light Yellow; Glucose,Urine (UA) Negative (Negative); Ketones,Urine Negative (Negative); Leukocyte Esterase,Urine Negative (Negative); Nitrite,Urine Negative (Negative); Protein,Urine Negative (Negative); Urobilinogen,Urine <2.0 mg/dL (<2.0)
[2019-01-06 09:32] VITALS: BP 148/86; RESP 18; TEMP 98
== END 2019-01-06 09:27 | disposition home or self-care (01) ==
LOC: EC 04:31
DX: S39.012A Strain of muscle, fascia and tendon of lower back, initial encounter (principal); S06.9X9A Unspecified intracranial injury with loss of consciousness of unspecified duration, initial encounter; J44.9 Chronic obstructive pulmonary disease, unspecified; K21.9 Gastro-esophageal reflux disease without esophagitis; E07.9 Disorder of thyroid, unspecified; Z79.82 Long term (current) use of aspirin; Z79.890 Hormone replacement therapy; Z79.899 Other long term (current) drug therapy; Z87.891 Personal history of nicotine dependence; Z85.828 Personal history of other malignant neoplasm of skin; Z96.652 Presence of left artificial knee joint; W01.198A Fall on same level from slipping, tripping and stumbling with subsequent striking against other object, initial encounter; Y93.01 Activity, walking, marching and hiking; Y92.59 Other trade areas as the place of occurrence of the external cause
CPT/HCPCS: 36415; 70450; 71045; 71260; 72125; 72129; 72132; 72170; 74177; 80053; 81003; 82550; 82553; 84484; 85025; 85610; 85730; 93005; 96374; 99284

== ENCOUNTER 2019-01-17 20:36 | Emergency (ER) | payer MEDICARE ==
[2019-01-17 20:44] VITALS: RESP 18; TEMP 97.8
--- NOTE | 2019-01-17 21:01 | ED ---
General Adult HPI - General Chief complaint: Fall Stated complaint: FALL Time Seen by Provider: 01/17/19 20:40 Source: patient, EMS Mode of arrival: EMS Limitations: physical limitation - History of Present Illness Initial comments: Dictation was produced using [employer] dictation software. please excuse any grammatical, word or spelling errors. Chief Complaint: 88-year-old male with past medical history of COPD, thyroid disease presents with fall History of Present Illness: Patient is 88-year-old male. He is brought in by EMS for fall. Patient states he had multiple alcoholic beverages today. States that he does remember what happened however there was a ceramics [place] that broke causing him to cut his hand. Patient denies any loss of consciousness. He denies hitting his head. He called his who saw him on the ground bleeding from his hand. Patient was acting normally at that time. Stepson states that he is been drinking more than usual since the of his in May. Patient has no complaint at this time. The ROS documented in this emergency department record has been reviewed and confirmed by me. Those systems with pertinent positive or negative responses have been documented in the HPI. All other systems are other negative and/or noncontributory. PHYSICAL EXAM: General Impression: Alert and oriented x3, not in acute distress HEENT: Normocephalic atraumatic, extra-ocular movements intact, pupils equal and reactive to light bilaterally, mucous membranes moist. Cardiovascular: Heart regular rate and rhythm, S1&S2 audible, no murmurs, rubs or gallops Chest: Lungs clear to auscultation bilaterally, no rhonchi, no wheeze, no rales Abdomen: Bowel sounds present, abdomen soft, non-tender, non-distended, no organomegaly Musculoskeletal: Pulses present and equal in all extremities, no peripheral edema Motor: Power 5/5 bilaterally, no focal deficits noted Neurological: CN II-XII grossly intact, no focal motor or sensory deficits noted Skin: Multiple lacerations to the left hand and forearm Psych: Normal affect and mood ED course: 88yo male presents after unwitnessed fall and lacerations to the hand. Signs upon arrival are within acceptable limits.Laboratory evaluation unremarkable. Metabolic panel unremarkable. Urinalysis and rapid urine drug screen negative. Patient's alcohol is 121. Patient is an Jalen without difficulties. Starting by mouth. Lacerations were repaired at bedside. Still to observe his wounds look for signs of infection prompting return to the emergency department. Patient otherwise told to have stitches removed in approximately 7-10 days. Patient clear for discharge. Patient feels well and call his son bring him back with any worsening symptoms. EKG interpretation: Ventricular rate 57, sinus rhythm, QRS 100, QTC 424. No CT prolongation, no QTC prolongation, no ST or T-wave changes noted. Overall, this EKG is unremarkable - Related Data Home Medications Medication Instructions Recorded Confirmed Aspirin 81 mg PO HS 05/24/16 01/17/19 Levothyroxine Sodium [Synthroid] 125 mcg PO DAILY 05/24/16 01/17/19 Tamsulosin [Flomax] 0.5 mg PO HS 05/24/16 01/17/19 Tiotropium [place] [Spiriva] 1 cap INHALATION RT-DAILY 05/24/16 01/17/19 Biotin 5 mg PO HS 09/09/16 01/17/19 Albuterol Sulfate [Proair Hfa] 1 - 2 puff INHALATION RT-Q6H PRN 03/05/17 Cholecalciferol [Vitamin D3] 1,000 unit PO DAILY 03/28/17 01/17/19 guaiFENesin-DM 600/30MG [Mucinex 1 tab PO HS 03/28/17 01/17/19 Dm] Multivitamins, Thera [Multivitamin 1 tab PO DAILY 01/06/19 01/17/19 (formulary)] Omeprazole 40 mg PO HS 01/06/19 01/17/19 diphenhydrAMINE [Benadryl] 25 mg PO QID PRN 01/06/19 01/17/19 Previous Rx's Medication Instructions Recorded HYDROcodone/APAP 5-325MG [[place] 1 tab PO DAILY PRN #5 tab 01/06/19 5-325] Allergies Allergy/AdvReac Type Severity Reaction Status Date / Time No Known Allergies Allergy Verified 01/17/19 21:48 Review of Systems ROS Statement: Those systems with pertinent positive or pertinent negative responses have been documented in the HPI. ROS Other: All systems not noted in ROS Statement are negative. Past Medical History Past Medical History: Cancer, COPD, GERD/Reflux, Hearing Disorder / Deafness, Musculoskeletal Disorder, Thyroid Disorder Additional Past Medical History / Comment(s): polyps removed in bladder. 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 Rotator Cuff Past Anesthesia/Blood Transfusion Reactions: No Reported Reaction Past Psychological History: No Psychological Hx Reported Smoking Status: Former smoker Past Alcohol Use History: Occasional Past Drug Use History: None Reported - Past Family History Father History Unknown: Yes Family Medical History: Cancer Additional Family Medical History / Comment(s): prostate Mother History Unknown: Yes Family Medical History: Coronary Artery Disease (CAD) Brother(s) Family Medical History: Cancer Additional Family Medical History / Comment(s): prostate, BONE CANCER General Exam Limitations: physical limitation Course Vital Signs 01/17/19 20:39 Temperature 97.8 F Pulse Rate 55 L Respiratory 18 Rate Blood Pressure 126/80 O2 Sat by Pulse 95 Oximetry Procedures - Laceration Laceration #1 Consent Obtained: verbal consent Indication: laceration Site: hand Description: linear, stellate, flap, avulsion, irregular, clean Depth: simple, single layer Anesthetic Used: lidocaine 1% Anesthesia Technique: local infiltration, nerve block Pre-repair: wound explored, irrigated extensively Type of Sutures: nylon Size of Sutures: 4-0 Technique: simple, interrupted, running Patient Tolerated Procedure: well Medical Decision Making - Lab Data Result diagrams: 01/17/19 21:06 01/17/19 21:06 Lab Results 01/17/19 01/17/19 01/17/19 Range/Units 21:06 21:06 21:06 WBC 6.1 (3.8-10.6) k/uL RBC 4.54 (4.30-5.90) m/uL Hgb 13.7 (13.0-17.5) gm/dL Hct 40.7 (39.0-53.0) % MCV 89.7 (80.0-100.0) fL MCH 30.2 (25.0-35.0) pg MCHC 33.7 (31.0-37.0) g/dL RDW 14.2 (11.5-15.5) % Plt Count 246 (150-450) k/uL Neutrophils % 59 % Lymphocytes % 26 % Monocytes % 7 % Eosinophils % 5 % Basophils % 1 % Neutrophils # 3.6 (1.3-7.7) k/uL Lymphocytes # 1.6 (1.0-4.8) k/uL Monocytes # 0.4 (0-1.0) k/uL Eosinophils # 0.3 (0-0.7) k/uL Basophils # 0.0 (0-0.2) k/uL Sodium 134 L (137-145) mmol/L Potassium 4.2 (3.5-5.1) mmol/L Chloride 96 L (98-107) mmol/L Carbon Dioxide 26 (22-30) mmol/L Anion Gap 12 mmol/L BUN 11 (9-20) mg/dL Creatinine 0.87 (0.66-1.25) mg/dL Est GFR (CKD-EPI)AfAm >90 (>60 ml/min/1.73 sqM) Est GFR (CKD-EPI)NonAf 78 (>60 ml/min/1.73 sqM) Glucose 123 H (74-99) mg/dL Calcium 9.1 (8.4-10.2) mg/dL Magnesium 1.8 (1.6-2.3) mg/dL Creatine Kinase 107 (55-170) U/L Urine Color Urine Appearance (Clear) Urine pH (5.0-8.0) Ur Specific [place] (1.001-1.035) Urine Protein (Negative) Urine Glucose (UA) (Negative) Urine Ketones (Negative) Urine Blood (Negative) Urine Nitrite (Negative) Urine Bilirubin (Negative) Urine Urobilinogen (<2.0) mg/dL Ur Leukocyte Esterase (Negative) Urine Opiates Screen (NotDetected) Ur Oxycodone Screen (NotDetected) Urine Methadone Screen (NotDetected) Ur Propoxyphene Screen (NotDetected) Ur Barbiturates Screen (NotDetected) U Tricyclic Antidepress (NotDetected) Ur Phencyclidine Scrn (NotDetected) Ur Amphetamines Screen (NotDetected) U Methamphetamines Scrn (NotDetected) U Benzodiazepines Scrn (NotDetected) Urine Cocaine Screen (NotDetected) U Marijuana (THC) Screen (NotDetected) Serum Alcohol 121 mg/dL 01/17/19 01/17/19 Range/Units 23:00 23:10 WBC (3.8-10.6) k/uL RBC (4.30-5.90) m/uL Hgb (13.0-17.5) gm/dL Hct (39.0-53.0) % MCV (80.0-100.0) fL MCH (25.0-35.0) pg MCHC (31.0-37.0) g/dL RDW (11.5-15.5) % Plt Count (150-450) k/uL Neutrophils % % Lymphocytes % % Monocytes % % Eosinophils % % Basophils % % Neutrophils # (1.3-7.7) k/uL Lymphocytes # (1.0-4.8) k/uL Monocytes # (0-1.0) k/uL Eosinophils # (0-0.7) k/uL Basophils # (0-0.2) k/uL Sodium (137-145) mmol/L Potassium (3.5-5.1) mmol/L Chloride (98-107) mmol/L Carbon Dioxide (22-30) mmol/L Anion Gap mmol/L BUN (9-20) mg/dL Creatinine (0.66-1.25) mg/dL Est GFR (CKD-EPI)AfAm (>60 ml/min/1.73 sqM) Est GFR (CKD-EPI)NonAf (>60 ml/min/1.73 sqM) Glucose (74-99) mg/dL Calcium (8.4-10.2) mg/dL Magnesium (1.6-2.3) mg/dL Creatine Kinase (55-170) U/L Urine Color Yellow Urine Appearance Clear (Clear) Urine pH 6.0 (5.0-8.0) Ur Specific [place] 1.008 (1.001-1.035) Urine Protein Negative (Negative) Urine Glucose (UA) Negative (Negative) Urine Ketones Negative (Negative) Urine Blood Negative (Negative) Urine Nitrite Negative (Negative) Urine Bilirubin Negative (Negative) Urine Urobilinogen <2.0 (<2.0) mg/dL Ur Leukocyte Esterase Negative (Negative) Urine Opiates Screen Not Detected (NotDetected) Ur Oxycodone Screen Not Detected (NotDetected) Urine Methadone Screen Not Detected (NotDetected) Ur Propoxyphene Screen Not Detected (NotDetected) Ur Barbiturates Screen Not Detected (NotDetected) U Tricyclic Antidepress Not Detected (NotDetected) Ur Phencyclidine Scrn Not Detected (NotDetected) Ur Amphetamines Screen Not Detected (NotDetected) U Methamphetamines Scrn Not Detected (NotDetected) U Benzodiazepines Scrn Not Detected (NotDetected) Urine Cocaine Screen Not Detected (NotDetected) U Marijuana (THC) Screen Not Detected (NotDetected) Serum Alcohol mg/dL Disposition Clinical Impression: Fall, Laceration Disposition: HOME SELF-CARE Condition: Good Instructions (If sedation given, give patient instructions): Fall Prevention for Older Adults (ED) Additional Instructions: remove sutures in 7-10 days Is patient prescribed a controlled substance at d/c from ED?: No Referrals: Albertina Evans MD [Primary Care Provider] - 1-2 days Time of Disposition: 23:34
[2019-01-17 21:21] LABS: Basophils % (A) 1 %; Eosinophils # (A) 0.3 k/uL (0-0.7); Eosinophils % (A) 5 %; HCT 40.7 % (39.0-53.0); HGB 13.7 gm/dL (13.0-17.5); Lymphocytes # (A) 1.6 k/uL (1.0-4.8); Lymphocytes % (A) 26 %; MCH 30.2 pg (25.0-35.0); MCHC 33.7 g/dL (31.0-37.0); MCV 89.7 fL (80.0-100.0); Mean Platelet Volume 7.4; Monocytes # (A) 0.4 k/uL (0-1.0); Monocytes % (A) 7 %; Neutrophils # (A) 3.6 k/uL (1.3-7.7); Neutrophils % (A) 59 %; Platelet Count 246 k/uL (150-450); RBC 4.54 m/uL (4.30-5.90); RDW 14.2 % (11.5-15.5); WBC 6.1 k/uL (3.8-10.6)
[2019-01-17 21:29] LABS: Anion Gap 12 mmol/L; Blood Urea Nitrogen 11 mg/dL (9-20); Calcium 9.1 mg/dL (8.4-10.2); Carbon Dioxide 26 mmol/L (22-30); Chloride 96 mmol/L (98-107); Creatine Kinase 107 U/L (55-170); Glucose 123 mg/dL (74-99); Magnesium 1.8 mg/dL (1.6-2.3); Potassium 4.2 mmol/L (3.5-5.1); Sodium 134 mmol/L (137-145)
--- NOTE | 2019-01-17 21:43 | CT ---
EXAMINATION TYPE: CT brain mona moise DATE OF EXAM: 01/17/2019 COMPARISON: January 06, 2019 HISTORY: Fall today. CT DLP: 1345.1 mGycm Automated exposure control for dose reduction was used. TECHNIQUE: CT scan of the head and cervical spine are performed without contrast. FINDINGS: There is cerebral cortical atrophy. There is no mass effect nor midline shift. There is n o sign of intracranial hemorrhage. The calvarium is intact. There is hypodensity in the periventricul ar white matter. The cervical vertebra have normal alignment. There is degenerative disc space narrowing throughout th e cervical spine and more severe at C5-6 C6-7. The posterior elements are intact. Facet joints are in tact. There is hypertrophic facet arthropathy. The skull base appears intact. IMPRESSION: Cerebral atrophy. No acute intracranial abnormality. Spondylotic changes in the lower cervical spine. No fracture. No change compared to old exam.
--- NOTE | 2019-01-17 21:58 | XR ---
EXAMINATION TYPE: XR chest 1V DATE OF EXAM: 01/17/2019 COMPARISON: 02/03/2019 HISTORY: Pain TECHNIQUE: Single frontal view of the chest is obtained. FINDINGS: There is no heart failure nor confluent pneumonic infiltrate. There is coarsening of inter stitial markings. There is poor inspiration. Heart size is normal. IMPRESSION: Inspiration is decreased compared to last exam. No heart failure. Lower lobe pneumonia c annot be excluded.
[2019-01-17] MEDS ORDERED: LIDOCAINE 1% INJ 10MG/ML (20 ML MDV) SQ ONE (21:59)
--- NOTE | 2019-01-17 21:59 | XR ---
Pelvis single view. History pain after falling. Comparison January 06, 2019. FINDINGS: The pelvic ring is intact. Proximal femurs and hip joints are intact. Sacroiliac joints appear normal . IMPRESSION: No acute abnormality of the pelvis.
--- NOTE | 2019-01-17 22:00 | XR ---
Left hand 3 views. History pain. Comparison none. FINDINGS: I see no fracture nor dislocation. There is narrowing of the IP joint spaces with spurring. There is no subluxation. Metacarpals are intact. IMPRESSION: Osteoarthritis. No fracture seen.
--- NOTE | 2019-01-17 22:01 | XR ---
Left forearm 2 views. History pain. Comparison none. FINDINGS: There is laceration soft tissue deformity of the distal forearm adjacent to the ulna. I see no fractu re nor dislocation. Elbow joint and wrist joint appear intact. IMPRESSION: No fracture seen. Laceration deformity.
[2019-01-17 23:14] LABS: Appearance,Urine Clear (Clear); Bilirubin,Urine Negative (Negative); Blood,Urine Negative (Negative); Color,Urine Yellow; Glucose,Urine (UA) Negative (Negative); Ketones,Urine Negative (Negative); Leukocyte Esterase,Urine Negative (Negative); Nitrite,Urine Negative (Negative); Protein,Urine Negative (Negative); Specific Gravity,Urine 1.008 (1.001-1.035); Urobilinogen,Urine <2.0 mg/dL (<2.0)
[2019-01-17 23:24] LABS: Amphetamine Screen,Urine Not Detected (NotDetected); Barbiturate Screen,Urine Not Detected (NotDetected); Benzodiazepines Screen,Urine Not Detected (NotDetected); Cocaine Screen,Urine Not Detected (NotDetected); Methadone Screen, Urine Not Detected (NotDetected); Opiate Screen,Urine Not Detected (NotDetected); Oxycodone Screen, Urine Not Detected (NotDetected); Phencyclidine Screen,Urine Not Detected (NotDetected); Tricyclic Antidepressant,Urine Not Detected (NotDetected); Urn Cannabinoid Scrn Not Detected (NotDetected)
[2019-01-17 23:54] VITALS: BP 160/80; PULSE 62
--- NOTE | 2019-01-19 06:49 | CDI ---
Documentation Clarification OP Dear Reynaldo CALLAHAN D, DO Please do addendum to ED report that describes the laceration length and depth of the repair. Thank you, Edith Villfauerte Make Ready Worker If you have any question, Please contact medical coding specialist at [phone] [facility]
--- NOTE | 2019-02-02 11:02 | ED ---
Medical Decision Making - Lab Data Result diagrams: 01/17/19 21:06 01/17/19 21:06 Lab Results 01/17/19 01/17/19 01/17/19 Range/Units 21:06 21:06 21:06 WBC 6.1 (3.8-10.6) k/uL RBC 4.54 (4.30-5.90) m/uL Hgb 13.7 (13.0-17.5) gm/dL Hct 40.7 (39.0-53.0) % MCV 89.7 (80.0-100.0) fL MCH 30.2 (25.0-35.0) pg MCHC 33.7 (31.0-37.0) g/dL RDW 14.2 (11.5-15.5) % Plt Count 246 (150-450) k/uL Neutrophils % 59 % Lymphocytes % 26 % Monocytes % 7 % Eosinophils % 5 % Basophils % 1 % Neutrophils # 3.6 (1.3-7.7) k/uL Lymphocytes # 1.6 (1.0-4.8) k/uL Monocytes # 0.4 (0-1.0) k/uL Eosinophils # 0.3 (0-0.7) k/uL Basophils # 0.0 (0-0.2) k/uL Sodium 134 L (137-145) mmol/L Potassium 4.2 (3.5-5.1) mmol/L Chloride 96 L (98-107) mmol/L Carbon Dioxide 26 (22-30) mmol/L Anion Gap 12 mmol/L BUN 11 (9-20) mg/dL Creatinine 0.87 (0.66-1.25) mg/dL Est GFR (CKD-EPI)AfAm >90 (>60 ml/min/1.73 sqM) Est GFR (CKD-EPI)NonAf 78 (>60 ml/min/1.73 sqM) Glucose 123 H (74-99) mg/dL Calcium 9.1 (8.4-10.2) mg/dL Magnesium 1.8 (1.6-2.3) mg/dL Creatine Kinase 107 (55-170) U/L Urine Color Urine Appearance (Clear) Urine pH (5.0-8.0) Ur Specific [place] (1.001-1.035) Urine Protein (Negative) Urine Glucose (UA) (Negative) Urine Ketones (Negative) Urine Blood (Negative) Urine Nitrite (Negative) Urine Bilirubin (Negative) Urine Urobilinogen (<2.0) mg/dL Ur Leukocyte Esterase (Negative) Urine Opiates Screen (NotDetected) Ur Oxycodone Screen (NotDetected) Urine Methadone Screen (NotDetected) Ur Propoxyphene Screen (NotDetected) Ur Barbiturates Screen (NotDetected) U Tricyclic Antidepress (NotDetected) Ur Phencyclidine Scrn (NotDetected) Ur Amphetamines Screen (NotDetected) U Methamphetamines Scrn (NotDetected) U Benzodiazepines Scrn (NotDetected) Urine Cocaine Screen (NotDetected) U Marijuana (THC) Screen (NotDetected) Serum Alcohol 121 mg/dL 01/17/19 01/17/19 Range/Units 23:00 23:10 WBC (3.8-10.6) k/uL RBC (4.30-5.90) m/uL Hgb (13.0-17.5) gm/dL Hct (39.0-53.0) % MCV (80.0-100.0) fL MCH (25.0-35.0) pg MCHC (31.0-37.0) g/dL RDW (11.5-15.5) % Plt Count (150-450) k/uL Neutrophils % % Lymphocytes % % Monocytes % % Eosinophils % % Basophils % % Neutrophils # (1.3-7.7) k/uL Lymphocytes # (1.0-4.8) k/uL Monocytes # (0-1.0) k/uL Eosinophils # (0-0.7) k/uL Basophils # (0-0.2) k/uL Sodium (137-145) mmol/L Potassium (3.5-5.1) mmol/L Chloride (98-107) mmol/L Carbon Dioxide (22-30) mmol/L Anion Gap mmol/L BUN (9-20) mg/dL Creatinine (0.66-1.25) mg/dL Est GFR (CKD-EPI)AfAm (>60 ml/min/1.73 sqM) Est GFR (CKD-EPI)NonAf (>60 ml/min/1.73 sqM) Glucose (74-99) mg/dL Calcium (8.4-10.2) mg/dL Magnesium (1.6-2.3) mg/dL Creatine Kinase (55-170) U/L Urine Color Yellow Urine Appearance Clear (Clear) Urine pH 6.0 (5.0-8.0) Ur Specific [place] 1.008 (1.001-1.035) Urine Protein Negative (Negative) Urine Glucose (UA) Negative (Negative) Urine Ketones Negative (Negative) Urine Blood Negative (Negative) Urine Nitrite Negative (Negative) Urine Bilirubin Negative (Negative) Urine Urobilinogen <2.0 (<2.0) mg/dL Ur Leukocyte Esterase Negative (Negative) Urine Opiates Screen Not Detected (NotDetected) Ur Oxycodone Screen Not Detected (NotDetected) Urine Methadone Screen Not Detected (NotDetected) Ur Propoxyphene Screen Not Detected (NotDetected) Ur Barbiturates Screen Not Detected (NotDetected) U Tricyclic Antidepress Not Detected (NotDetected) Ur Phencyclidine Scrn Not Detected (NotDetected) Ur Amphetamines Screen Not Detected (NotDetected) U Methamphetamines Scrn Not Detected (NotDetected) U Benzodiazepines Scrn Not Detected (NotDetected) Urine Cocaine Screen Not Detected (NotDetected) U Marijuana (THC) Screen Not Detected (NotDetected) Serum Alcohol mg/dL Disposition Clinical Impression: Fall, Laceration Disposition: HOME SELF-CARE Condition: Good Instructions (If sedation given, give patient instructions): Fall Prevention for Older Adults (ED) Additional Instructions: remove sutures in 7-10 days Is patient prescribed a controlled substance at d/c from ED?: No Referrals: Albertina Evans MD [Primary Care Provider] - 1-2 days Procedures - Laceration Laceration #1 Size (cm): 3
== END 2019-01-17 23:53 | disposition home or self-care (01) ==
LOC: EC 20:36
DX: S61.412A Laceration without foreign body of left hand, initial encounter (principal); S51.812A Laceration without foreign body of left forearm, initial encounter; J44.9 Chronic obstructive pulmonary disease, unspecified; K21.9 Gastro-esophageal reflux disease without esophagitis; E07.9 Disorder of thyroid, unspecified; H91.90 Unspecified hearing loss, unspecified ear; Z85.828 Personal history of other malignant neoplasm of skin; Z87.891 Personal history of nicotine dependence; Z79.82 Long term (current) use of aspirin; Z79.890 Hormone replacement therapy; Z79.899 Other long term (current) drug therapy; Z96.652 Presence of left artificial knee joint; Z98.41 Cataract extraction status, right eye; Z98.42 Cataract extraction status, left eye; W19.XXXA Unspecified fall, initial encounter; Y92.009 Unspecified place in unspecified non-institutional (private) residence as the place of occurrence of the external cause
CPT/HCPCS: 99285 ×2; 12002 ×2; 36415; 93005; 80048; 82550; 83735; 85025; 81003; 80306; 72170; 73090; 73130; 71045; 72125; 70450; G0480; J2001; 80320

== ENCOUNTER 2019-06-18 18:01 | Emergency (ER) | payer OTHER, MEDICARE ==
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
[2019-06-18 18:17] VITALS: TEMP 98.2
[2019-06-18 18:39] LABS: Basophils # (A) 0.1 k/uL (0-0.2); Basophils % (A) 1 %; Eosinophils # (A) 0.4 k/uL (0-0.7); Eosinophils % (A) 7 %; HCT 41.1 % (39.0-53.0); HGB 13.3 gm/dL (13.0-17.5); Lymphocytes # (A) 1.5 k/uL (1.0-4.8); Lymphocytes % (A) 26 %; MCH 27.5 pg (25.0-35.0); MCHC 32.3 g/dL (31.0-37.0); MCV 85.2 fL (80.0-100.0); Mean Platelet Volume 7.4; Monocytes # (A) 0.5 k/uL (0-1.0); Monocytes % (A) 9 %; Neutrophils # (A) 3.2 k/uL (1.3-7.7); Neutrophils % (A) 54 %; Platelet Count 228 k/uL (150-450); RBC 4.83 m/uL (4.30-5.90); RDW 14.4 % (11.5-15.5)
[2019-06-18 18:43] LABS: Appearance,Urine Clear (Clear); Bilirubin,Urine Negative (Negative); Blood,Urine Negative (Negative); Color,Urine Yellow; Glucose,Urine (UA) Negative (Negative); Ketones,Urine Negative (Negative); Leukocyte Esterase,Urine Negative (Negative); Nitrite,Urine Negative (Negative); PH, Urine 5.5 (5.0-8.0); Protein,Urine Negative (Negative); Specific Gravity,Urine 1.011 (1.001-1.035); Urobilinogen,Urine <2.0 mg/dL (<2.0)
[2019-06-18 18:49] LABS: Albumin 4.6 g/dL (3.5-5.0); Calcium 9.1 mg/dL (8.4-10.2); Potassium 3.7 mmol/L (3.5-5.1); Total Bilirubin 0.4 mg/dL (0.2-1.3); Total Protein 7.5 g/dL (6.3-8.2)
[2019-06-18 18:54] LABS: Partial Thromboplastin Time 24.9 sec (22.0-30.0)
[2019-06-18 18:56] LABS: Amphetamine Screen,Urine Not Detected (NotDetected); Barbiturate Screen,Urine Not Detected (NotDetected); Benzodiazepines Screen,Urine Not Detected (NotDetected); Cocaine Screen,Urine Not Detected (NotDetected); Methadone Screen, Urine Not Detected (NotDetected); Opiate Screen,Urine Not Detected (NotDetected); Oxycodone Screen, Urine Not Detected (NotDetected); Phencyclidine Screen,Urine Not Detected (NotDetected); Tricyclic Antidepressant,Urine Not Detected (NotDetected); Urn Cannabinoid Scrn Not Detected (NotDetected)
--- NOTE | 2019-06-18 19:24 | XR ---
EXAMINATION TYPE: XR tibia fibula bilateral DATE OF EXAM: 06/18/2019 COMPARISON: NONE HISTORY: Bilateral leg pain TECHNIQUE: 8 views FINDINGS: There is some vascular calcification. Left and right ankle appear intact. There is bilatera l spurring at the ankle joints. There is left knee prosthesis. There is some narrowing of the right k nee joint spaces with spurring of the femoral and tibial condyles. IMPRESSION: Osteoarthritis. No fracture seen.
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
[2019-06-18 20:41] VITALS: BP 153/104; PULSE 75; RESP 18
== END 2019-06-18 20:54 | disposition home or self-care (01) ==
LOC: EC 18:01
DX: S20.219A Contusion of unspecified front wall of thorax, initial encounter (principal); S50.812A Abrasion of left forearm, initial encounter; S80.811A Abrasion, right lower leg, initial encounter; S80.812A Abrasion, left lower leg, initial encounter; J44.9 Chronic obstructive pulmonary disease, unspecified; K21.9 Gastro-esophageal reflux disease without esophagitis; E07.9 Disorder of thyroid, unspecified; H91.93 Unspecified hearing loss, bilateral; Z87.891 Personal history of nicotine dependence; Z79.82 Long term (current) use of aspirin; Z79.890 Hormone replacement therapy; Z79.899 Other long term (current) drug therapy; Z85.828 Personal history of other malignant neoplasm of skin; Z96.652 Presence of left artificial knee joint; Z97.4 Presence of external hearing-aid; V43.52XA Car driver injured in collision with other type car in traffic accident, initial encounter; Y92.410 Unspecified street and highway as the place of occurrence of the external cause
CPT/HCPCS: 36415; 71045; 72170; 80053; 80306; 80320; 81003; 82550; 84484; 85025; 85610; 85730; 86850; 86900; 86901; 93005; 99284

== ENCOUNTER → 2020-07-24 | Outpatient (CLI) | payer MEDICARE ==
[2020-07-24 15:28] LABS: T4, Free (Free Thyroxine) 1.4 ng/dL (0.80-1.80)
== END | disposition home or self-care (01) ==
LOC: LABWHC1 10:00
PROVIDERS: ATTEND Internal Medicine Interventional Cardiology
DX: E03.9 Hypothyroidism, unspecified (principal)
CPT/HCPCS: 36415; 84439; 84443

== ENCOUNTER → 2020-08-21 | Outpatient (CLI) | payer MEDICARE ==
[2020-08-21 17:36] LABS: T4, Free (Free Thyroxine) 1.4 ng/dL (0.80-1.80)
== END | disposition home or self-care (01) ==
LOC: LABWHC1 10:56
PROVIDERS: ATTEND Nurse Practitioner
DX: E03.9 Hypothyroidism, unspecified (principal)
CPT/HCPCS: 36415; 84439; 84443